=== PATIENT | male | born 1940 | race Caucasian/White ===

== ENCOUNTER → 2016-07-27 12:18 | Outpatient (CLI) | payer MEDICARE, OTHER ==
[2014-07-09 09:27] VITALS: BMI 32.9
[~2016-07-27 12:18] MED LIST: ALEVE220 MG PO; ASCORBIC ACID500 MG; BAYER CHEWABLE81 MG PO; BETAPACE 80 MG80 MG PO; CARDURA2 MG PO; COUMADIN1 MG; FISH OIL 1,0001 CA1; HYZAAR 100-25 T1 TAB PO; K-TAB10 MEQ PO; LASIX20 MG PO; MULTIPLE VITAMI1 TA1 PO; OSTEOBI-FLEX; SINEMET 10/101 UDTAB PO
--- NOTE | 2016-08-04 14:37 | EC ---
PATIENT:MICHELLE FREIRE DATE OF SERVICE: 07/27/16 SEX: M MEDICAL RECORD: [id number] DATE OF : 38 [facility] [place] AGE OF PATIENT: 76 ADMISSION DATE: 07/27/16 REFERRING PHYSICIAN: INTERPRETING PHYSICIAN: LEONEL BRADSHAW MD ECHOCARDIOGRAM REPORT ECHO CHARGES 4 ECHO COMPLETE CLINICAL DIAGNOSIS: TIA HX OF CAD/STENT/PACER/HTN ECHOCARDIOGRAPHIC MEASUREMENTS (adult normal given) AC root (d.<3.7cm) 3.7 LV Septum d (<1.2 cm> 2.2 Valve Excursion 1.3 LV Septum (systole) 2.5 Left Atria (s.<4.0cm> 4.0 LVPW d(<1.2cm) 1.6 RV (d.<2.3cm) 4.3 LVPW (sytole) 1.8 LV diastole(<5.6CM) 3.7 MV E-F(>70mm/sec) LV systole 2.9 LVOT Diameter 1.8 MV exc.(>10mm) Est.ejection fraction (50-75%) Pericardial Effusion N DOPPLER: LVIT A 40.0 E 104 LA RVSP LVOT 90 AOP1/2T Asc. Ao 115 RVOT 95 RA PA 120 AV Gradient Peak 5.33 AV Mean 2.20 AV Area 2.0 MV Gradient Peak 6.81 MV Mean 2.12 MV Area COMMENTS: Box Finisher: Malena FLETCHER Laundry Aid:Malena Michel TAPE# PACS DATE OF SERVICE: 07/27/2016 Echocardiogram FINDINGS: 1. Left ventricular chamber size is within normal limits. Left ventricular systolic function is normal. Overall ejection fraction estimated at 55%. 2. Left atrium, right atrium, and right ventricular chamber sizes are upper limits of normal, left atrium measures 4.0 cm. 3. Valvular structures have normal structure and motion. ECHOCARDIOGRAM REPORT [id number] MICHELLE FREIRE 4. Doppler interrogation only reveals trace mitral regurgitation that is not hemodynamically significant. No other valvular insufficiency or stenosis. 5. No evidence of pericardial effusion or left ventricular thrombus. TRANSINT:[id number] Voice Confirmation ID: [id number] DOCUMENT ID: [id number] LEONEL BRADSHAW MD at 7445 CC: [id number] DICTATION DATE: 07/27/16 1547 SPOOL TENDER: 07/28/16 0842 DEP CLI 07/27/16 [address] [place] [address]
== END | disposition home or self-care (01) ==
LOC: D.ECHO 12:18 → D.CT 15:00
DX: G45.0 Vertebro-basilar artery syndrome (principal); M47.9 Spondylosis, unspecified

== ENCOUNTER → 2016-08-25 10:05 | Outpatient (CLI) | payer MEDICARE, OTHER ==
[2014-07-09 09:27] VITALS: BMI 32.9
== END | disposition home or self-care (01) ==
LOC: D.CT 10:05
DX: G45.0 Vertebro-basilar artery syndrome (principal); I67.2 Cerebral atherosclerosis

== ENCOUNTER 2017-02-08 17:15 | Inpatient (IN) | payer MEDICARE, OTHER ==
[2017-02-08 17:43] VITALS: BP 118/76
--- NOTE | 2017-02-08 17:46 | NUR ---
NEW ADMIT FROM DR. HARDIN OFFICE. ESCORTED FROM ADMISSIONS BY W/C. CECILIAINTED TO ROOM. CALL LIGHT IN REACH. WILL CONT. PLAN OF CARE.
[2017-02-08 17:54] VITALS: BP 118/76; BMI 21.4
[2017-02-08] MEDS ORDERED: LANTUS SOL100 UNIT/1 SC (18:20)
[2017-02-08] MEDS ORDERED: NAPROXEN250 MG PO (18:21)
[2017-02-08] MEDS ORDERED: COUMADIN2.5 MG PO (18:23)
[2017-02-08 19:00] VITALS: BP 117/84
[2017-02-08 19:17] LABS: INR 3.08 (0.85-1.17)
--- NOTE | 2017-02-08 22:01 | NUR ---
PAGE AND RETURN CALL TO DR CHENG TO DISCUSS PATIENT'S C/O LEFT SHOULDER PAIN. ORDERS RECIEVED. WILL ALSO CONSULT ORTHO FOR EVALUATION.
[2017-02-09] VITALS: BP 126/56
[2017-02-09 04:00] VITALS: BP 140/83
[2017-02-09 05:06] LABS: BASOPHILS 0.1 % (0-2); EOSINOPHILS 0 % (0-7); HEMATOCRIT 34.7 % (42.0-54.0); HEMOGLOBIN 11.6 g/dL (13.5-17.5); IMMATURE GRANULOCYTES 0.5 % (0-5); LYMPHOCYTES 4.7 % (15-50); MCH 32.2 pg (26.0-34.0); MCHC 33.4 g/dL (31.0-37.0); MCV 96.4 fL (80.0-100.0); MEAN PLATELET VOLUME 10.4 fL (7.4-10.4); MONOCYTES 8.1 % (2-11); NEUTROPHILS 86.6 % (40-80); PLATELET COUNT 139 10x3/uL (130-400); WBC 15.2 10x3/uL (4.8-10.8)
[2017-02-09 05:27] LABS: INR 2.91 (0.85-1.17); PROTIME 30.7 SECONDS (11.6-15.0)
[2017-02-09 05:33] LABS: ALBUMIN 2.8 g/dL (3.4-5.0); ALKALINE PHOSPHATASE 105 U/L (46-116); ALT (SGPT) 31 U/L (10-68); CALC OSMOLALITY 275 mosm/kg (275-300); CALCIUM 9.6 mg/dL (8.5-10.1); CARBON DIOXIDE 30.7 mmol/L (21.0-32.0); CHLORIDE - SERUM 96 mmol/L (98-107); POTASSIUM - SERUM 3.9 mmol/L (3.5-5.1); PROTEIN - SERUM 6.6 g/dL (6.4-8.2); SODIUM 131 mmol/L (136-145); UREA NITROGEN 23 mg/dL (7-18); eGFR NON AFRICAN AMERICAN 77 mL/min (90-120)
[2017-02-09 05:34] LABS: GLUCOSE 257 mg/dL (74-106)
--- NOTE | 2017-02-09 07:19 | NUR ---
PT SITTING UP IN BED DR CUMMINGS AND NURSE AT BEDSIDE TALKING WITH PT. WILL CONT TO MONITOR
[2017-02-09 08:00] VITALS: BP 133/76
--- NOTE | 2017-02-09 09:04 | NUR ---
DR CUMMINGS ORDERED CT SCAN WITH ARTHROGRAM. CT SAID THAT PT PT AND INR ARE TOO ELEVATED AND DR NEWELL SAID TO HOLD ALL BLOOD THINNERS INCLUDING ASA AND COUMADIN UNTIL AFTER PTS SCAN PLANNED FOR WEDNESDAY. PLACED MEDICATIONS ON HOLD ORDERED. PT TO BE NPO AFTER MIDNIGHT FOR SCAN PLANNED ON SUNDAY 02/11, ORDER IS ALREADY IN COMPUTER. PT UPDATED ON THIS INFORMATION
[2017-02-09 10:25] VITALS: BMI 33.5
[2017-02-09 12:03] VITALS: BP 115/49
--- NOTE | 2017-02-09 12:20 | NUR ---
PT ACCIDENTALLY PULLED HIS PIV OUT CATH TIP INTACT. PT IS EATING LUNCH RIGHT NOW WILL CALL WHEN READY FOR ME TO RESITE HIS PIV
--- NOTE | 2017-02-09 13:00 | NUR ---
SITED PT TO LEFT FA 20G X1 STICK
[2017-02-09 15:54] VITALS: BP 125/69
--- NOTE | 2017-02-09 16:15 | NUR ---
PT SITTING UP IN BED WATCHING TV DENIES NEEDS OTHER THAN PAIN PILL GIVEN
[2017-02-09 19:00] VITALS: BP 127/78
--- NOTE | 2017-02-09 19:15 | NUR ---
ROUNDING NOTE: PT IS AWAKE, A&O X3 SITTING UP IN BED. PT HAS LEFT FOREARM SALINE LOC. HE IS WEARING HIS OWN [place] AND REFUSES TO WEAR OUR SCDS FOR DVT PROPHYLAXIS. PT REPORTS CONTINUED LEFT SHOULDER PAIN, BUT STATES THAT HIS PAIN HAS IMPROVED NICELY WITH PO PERCOCET PER MD ORDER. PT'S COUMADIN AND ASA ARE BEING HELD IN PREP FOR CT ARTHROGRAM ON WEDNESDAY TO FURTHER EVALUATE HIS LEFT SHOULDER PAIN. PT IS UP AD CLAUDINE TO BR. REPORTS VOIDING AND BM X1. DENIES ANY OTHER NEEDS, OTHER THAN KEEPING DOOR SHUT. WILL CONT TO MONITOR.
--- NOTE | 2017-02-09 21:00 | NUR ---
DURING 2099 MED PASS, PT REFUSED NAPROXEN DUE TO CONCERN OVER IMPACT A BLOOD THINNER. PT'S COUMADIN AND ASA ARE BEING HELD IN PREPARATION FOR A CT ARTHROGRAM TO BE DONE ON WEDNESDAY LONG INR COMES DOWN. I EXPLAINED THAT IT WAS THE PT'S CHOICE TO REFUSE THE MED AND I UNDERSTOOD HIS CONCERN. I ADVISED HIM TO DISCUSS HIS CONCERN WITH HIS MD. HE STATES THAT HIS SHOULDER PAIN IS NOT TOO BAD AT THE MOMENT. THE PRN PERCOCETS ARE WORKING VERY WELL, SOHE DOESN'T REALLY NEED THE NAPROXEN. WILL CONT TO MONITOR.
[2017-02-10 04:00] VITALS: BP 113/63
[2017-02-10 05:15] LABS: BASOPHILS 0 % (0-2); EOSINOPHILS 0 % (0-7); HEMATOCRIT 34.4 % (42.0-54.0); HEMOGLOBIN 11.9 g/dL (13.5-17.5); IMMATURE GRANULOCYTES 0.5 % (0-5); LYMPHOCYTES 4.9 % (15-50); MCH 32.8 pg (26.0-34.0); MCHC 34.6 g/dL (31.0-37.0); MCV 94.8 fL (80.0-100.0); MEAN PLATELET VOLUME 10.2 fL (7.4-10.4); MONOCYTES 7.9 % (2-11); NEUTROPHILS 86.7 % (40-80); RBC 3.63 10x6/uL (4.20-6.10); RDW 12.7 % (11.5-14.5); WBC 15.2 10x3/uL (4.8-10.8)
[2017-02-10 05:26] LABS: PLATELET COUNT 167 10x3/uL (130-400)
[2017-02-10 05:31] LABS: INR 3.04 (0.85-1.17); PROTIME 31.7 SECONDS (11.6-15.0)
[2017-02-10 05:36] LABS: ALBUMIN 2.6 g/dL (3.4-5.0); ALKALINE PHOSPHATASE 102 U/L (46-116); ALT (SGPT) 28 U/L (10-68); BILIRUBIN - TOTAL 0.51 mg/dL (0.2-1.3); CALC OSMOLALITY 264 mosm/kg (275-300); CALCIUM 9.5 mg/dL (8.5-10.1); CARBON DIOXIDE 29.6 mmol/L (21.0-32.0); CHLORIDE - SERUM 92 mmol/L (98-107); CREATININE - SERUM 0.9 mg/dL (0.6-1.3); GLUCOSE 212 mg/dL (74-106); POTASSIUM - SERUM 3.7 mmol/L (3.5-5.1); PROTEIN - SERUM 6.7 g/dL (6.4-8.2); SODIUM 126 mmol/L (136-145); UREA NITROGEN 29 mg/dL (7-18); eGFR NON AFRICAN AMERICAN 87 mL/min (90-120)
--- NOTE | 2017-02-10 07:16 | NUR ---
pt sitting up in bed watching tv denies needs will cont to monitor
[2017-02-10 08:16] VITALS: BP 116/24; BP 136/80
[2017-02-10 11:45] VITALS: BP 148/77
--- NOTE | 2017-02-10 12:20 | NUR ---
DR CUMMINGS CANCELLED PT CT SCAN AND ARTHROGRAM. RESTARTED BLOOD THINNERS SINCE THEY WERE ON HOLD FOR THIS SCAN.
--- NOTE | 2017-02-10 14:45 | NUR ---
PT SITTING UP IN BED CLAIMS HIS CAME UP AND SHAVED HIM. DENIES NEEDS WILL CONT TO MONITOR
--- NOTE | 2017-02-10 14:48 | NUR ---
PT HAS EXCORIATED PERINEAL AREA. CALLED DR MARTIN OFFICE TO ASK FOR AN ORDER FOR CALMOSEPTINE. SPOKE WITH NURSE, SHE WILL CALL ME BACK
[2017-02-10 16:00] VITALS: BP 132/57
--- NOTE | 2017-02-10 19:34 | NUR ---
PT LYING IN BED, TALKING ON HIS CELL PHONE, AWAKE, ALERT, ORIENTED. PT DENIES ANY ACUTE NEEDS AT THIS TIME. WILL GIVE PT AN HS SNACK WITH HIS INSULIN. CONTINUE TO MONITOR PT CLOSELY. BED LOW, CALL LIGHT IN REACH, SIDE RAILS X 2, HOB 30 DEGREES.
[2017-02-10 20:00] VITALS: BP 133/68
--- NOTE | 2017-02-10 20:23 | NUR ---
PT STATES THAT HE HAS HAD A BM EARLIER THAT WAS MORE FORMED FROM THE ONES BEFORE. PT STATES HE THINKS THE ANTIBIOTICS ARE CAUSING HIM TO HAVE DIARRHEA AND WOULD LIKE TO START TAKING A PROBIOTIC. PT EATING CHOCOLATE ICE CREAM FOR HIS HS SNACK. DENIES ANY OTHER NEEDS. CONTINUE TO MONITOR CLOSELY.
--- NOTE | 2017-02-10 22:31 | NUR ---
PT SALINE LOCKED PER REQUEST AFTER ADMINISTRATION OF HIS LEVAQUIN. PT REMAINS AWAKE, ALERT, ORIENTED, DENIES ANY OTHER NEEDS. PT IS EATING AND DRINKING WNL AND LIKES TO BE SL FOR EASIER AMBULATION TO BATHROOM. PT DENIES ANY OTHER NEEDS. CONTINUE TO MONITOR CLOSELY.
[2017-02-11 05:51] LABS: BASOPHILS 0 % (0-2); EOSINOPHILS 0 % (0-7); HEMATOCRIT 33.9 % (42.0-54.0); HEMOGLOBIN 11.6 g/dL (13.5-17.5); IMMATURE GRANULOCYTES 0.4 % (0-5); LYMPHOCYTES 6.9 % (15-50); MCH 32.1 pg (26.0-34.0); MCHC 34.2 g/dL (31.0-37.0); MCV 93.9 fL (80.0-100.0); MONOCYTES 6.9 % (2-11); NEUTROPHILS 85.8 % (40-80); PLATELET COUNT 178 10x3/uL (130-400); RBC 3.61 10x6/uL (4.20-6.10); RDW 12.5 % (11.5-14.5); WBC 13.7 10x3/uL (4.8-10.8)
[2017-02-11 06:10] LABS: INR 3.07 (0.85-1.17)
[2017-02-11 06:17] LABS: ALBUMIN 2.5 g/dL (3.4-5.0); ALKALINE PHOSPHATASE 84 U/L (46-116); ALT (SGPT) 31 U/L (10-68); CALC OSMOLALITY 278 mosm/kg (275-300); CALCIUM 9.2 mg/dL (8.5-10.1); CARBON DIOXIDE 29.5 mmol/L (21.0-32.0); CHLORIDE - SERUM 98 mmol/L (98-107); CREATININE - SERUM 0.8 mg/dL (0.6-1.3); GLUCOSE 203 mg/dL (74-106); POTASSIUM - SERUM 3.9 mmol/L (3.5-5.1); PROTEIN - SERUM 5.4 g/dL (6.4-8.2); SODIUM 134 mmol/L (136-145); UREA NITROGEN 27 mg/dL (7-18); eGFR NON AFRICAN AMERICAN > 90 mL/min (90-120)
--- NOTE | 2017-02-11 07:38 | NUR ---
PT SITTING UP IN BED WATCHING TV DENIES NEEDS WILL CONT TO MONITOR
[2017-02-11 08:00] VITALS: BP 122/68
[2017-02-11] MEDS ORDERED: MEDROL DOSE PACK4 MG PO (08:18)
[2017-02-11] MEDS ORDERED: ADVAIR 250/501 DISK INH (08:18)
[2017-02-11] MEDS ORDERED: COMBIVENT RESPIM4 GM INH (08:19)
[2017-02-11] MEDS ORDERED: DOXYCYCLINE HY100 M2 PO (08:20)
[2017-02-11] MEDS ORDERED: PERCOCET 5-3251 TAB PO (08:27)
--- NOTE | 2017-02-11 11:00 | NUR ---
Patient Name: MICHELLE FREIRE Admission Status: Urgent Accout number: [id number] Admission Date: 02-08-2017 : 1940 Admission Diagnosis:SHORTNESS OF BREATH Attending: SHIREEN PRINGLE Current LOS: 3 Anticipated DC Date: 02-11-2017 Planned Disposition: Outpatient clinics\services (Programs) Primary Insurance: MEDICARE A & B PLANNED EXTERNAL PROVIDER: OUTPATIENT THERAPY SERVICES AT [facility] Discharge Planning Comments: * Is the patient Alert and Oriented? Yes 0 * How many steps to enter\exit or inside your home? 2 0 * PCP DR. PRINGLE 0 * Pharmacy [facility] 0 * Preadmission Environment Home with Family 0 * ADLs Independent 0 * Equipment None 0 * Other Equipment NO MEDICAL EQUIPMENT PROVIDER PREFERNCE PLANS TO USE [employer] FOR ANY MINOR EQUIPMENT NEEDS 0 * List name and contact numbers for known caregivers / representatives who currently or will assist patient after discharge: JAZZY FREIRE, SPOUSE, 0 * Community resources currently utilized None 0 * Please name any agencies selected above. NONE 0 * Additional services required to return to the preadmission environment? No 0 * Can the patient safely return to the preadmission environment? Yes 0 * Has this patient been hospitalized within the prior 30 days at any hospital? No 0 CM RECEIVED DISCHARGE ORDER, MET WITH PT IN ROOM TO DISCUSS DISCHARGE PLANNING AND NEEDS. PT REPORTS LIVING AT HOME INDEPENDENTLY WITH SPOUSE. PT HAS NO MEDICAL EQUIPMENT AND NO OUTSIDE SERVICES ASSISTING IN THE HOME. CM DISCUSSED AVAILABILITY OF HOME HEALTH, REHAB SERVICES AND MEDICAL EQUIPMENT. PT STATES THE DOCTOR TALKED ABOUT POSSIBLE PHYSICAL THERAPY AND PT WOULD LIKE OUTPATIENT THERAPY AT THE [facility]. CM CALLED AND SPOKE TO NAI CAMARA AT [facility], RECEIVED ORDER FOR OUTPATIENT THERAPY FOR PT'S SHOULDER AND THERAPY DEPARTMENT AT THE CLINIC WILL CONTACT PT TO ARRANGE APPOINTMENT. PT NOTIFIED, IN AGREEMENT WITH DISCHARGE PLAN, REPORTS HIS WILL PICK HIM UP FOR DISCHARGE HOME. IMPORTANT MESSAGE FROM MEDICARE PROVIDED AND EXPLAINED. [facility] TECHNICIAN NURSE NOTIFIED. Rehab Nurse: Angel Lacy
--- NOTE | 2017-02-11 11:30 | NUR ---
WENT OVER DC PAPERWORK WITH PT PT VERBALIZES UNDERSTANDING. DC PIV WITH CATH TIP INTACT. DC TELE AND RETURNED TO JAZZ MUSICIAN. PT WAITING ON HIS TO GET HERE TO PICK HIM UP. PT WAS GIVEN SCRIPT FOR PERCOCET.
--- NOTE | 2017-02-11 12:01 | NUR ---
PT WAS WHEELED DOWNSTAIRS BY VOLUNTEER.
--- NOTE | 2017-02-22 11:43 | CN ---
PATIENT NAME:MICHELLE VICKERS MEDICAL RECORD: [id number] : 38 LOCATION:D. D.2130 ADMIT DATE: 02/08/17 ACCOUNT: [id number] CONSULTING PHYSICIAN: HILARIO HITCHCOCK MD REFERRING PHYSICIAN: SHIREEN PRINGLE MD DATE OF CONSULTATION: 02/09/2017 Pulmonary Consultation CONSULT REQUESTING PHYSICIAN: Dr. Cheng. REASON FOR CONSULTATION: Cough, shortness of breath. HISTORY OF PRESENT ILLNESS: Mr. Vickers is a 76-year-old very pleasant gentleman who for the last 2-3 days is sick. He has a fever of 102. He was coughing, he was wheezing. He has shortness of breath. The patient having a fall and he has hurt his left shoulder. Since his admission, his shortness of breath is a bit better with nebulizer medication. REVIEW OF SYSTEMS: Mainly in the history of present illness. PAST MEDICAL HISTORY: 1. COPD. 2. Emphysema. 3. Obstructive sleep apnea. 4. Coronary artery disease. 5. History of sick sinus syndrome. 6. Obstructive sleep apnea. The patient is not using any CPAP machine. 7. Diabetes mellitus. 8. History of DVT. 9. Chronic anticoagulation on Coumadin. PAST SURGICAL HISTORY: 1. He has status post pacemaker placement. 2. He has shoulder surgery. ALLERGIES: There are no known drug allergy. PERSONAL AND SOCIAL HISTORY: The patient has smoking history of more than 50-pack year. He quit 5 years ago. Nondrinker. FAMILY HISTORY: Noncontributory. PHYSICAL EXAMINATION: GENERAL: Now, the patient is lying comfortably. He is not in acute distress. VITAL SIGNS: Blood pressure 125/69, pulse is 83, respiration is 20, temperature 98.2, SPO2 is 93% on room air. HEENT: Conjunctivae pink, sclerae nonicteric. NECK: Supple, no JVD. CHEST: Chest excursion is minimal on both sides. There is no wheezing or crackle at the bases heard. HEART: Rhythm regular, normal sound, no murmur. ABDOMEN: Soft, bowel sounds present. No hepatosplenomegaly. RECTAL: Deferred. EXTREMITIES: No cyanosis, no clubbing, no pedal edema. CONSULT REPORT [id number] MICHELLE VICKERS SKIN: Warm, normal turgor. CENTRAL NERVOUS SYSTEM: The patient is awake and alert. There are no obvious cranial nerve abnormalities. The gait was not tested. LABORATORY DATA: CBC: WBC 15.2, hemoglobin 11.6, hematocrit 34.7 and the platelet count 139. Chemistry: Sodium is 131, potassium is 3.9, BUN is 23, creatinine is 1, glucose 257. INR is 2.91. The chest radiograph is not available for review. IMPRESSION: 1. Acute exacerbation of chronic obstructive pulmonary disease and possible pneumonia by the chest x-ray at Dr. Cheng's office consistent with a community-acquired pneumonia. 2. Leukocytosis secondary to pneumonia. 3. Febrile illness secondary to pneumonia. 4. Obstructive sleep apnea, not using the CPAP machine. 5. History of deep venous thrombosis, on chronic anticoagulation. RECOMMENDATION: Continue methylprednisolone IV, Levaquin IV, albuterol/ipratropium nebulizer. Start on Brovana, budesonide nebulizer. Follow up labs and chest radiograph in the morning. Dr. Cheng, thank you for involving me in the care of Mr. Vickers. TRANSINT:[id number] Voice Confirmation ID: [id number] DOCUMENT ID: [id number] HILARIO HITCHCOCK MD at 1143 CC: GIOVANY CHENG MD [id number] DICTATION DATE: 02/09/17 164 FINE GRADE BULLDOZER OPERATOR: 02/09/17 2317 DIS IN 02/11/17 [address] [place] [address]
== END 2017-02-11 12:02 | disposition home or self-care (01) | DRG 190 ==
LOC: D.M2 17:15
PROVIDERS: Family Medicine; ADMIT Family Medicine
DX: J44.0 Chronic obstructive pulmonary disease with (acute) lower respiratory infection (principal); J18.9 Pneumonia, unspecified organism; J44.1 Chronic obstructive pulmonary disease with (acute) exacerbation; I48.91 Unspecified atrial fibrillation; Z79.01 Long term (current) use of anticoagulants; G47.33 Obstructive sleep apnea (adult) (pediatric); E11.9 Type 2 diabetes mellitus without complications; Z95.0 Presence of cardiac pacemaker; Z86.73 Personal history of transient ischemic attack (TIA), and cerebral infarction without residual deficits; Z87.891 Personal history of nicotine dependence; M25.512 Pain in left shoulder

== ENCOUNTER 2017-02-28 14:12 | Inpatient (IN) | payer MEDICARE, OTHER ==
--- NOTE | ~2017-02-28 | HEMODYNAMI ---
PATIENT:MICHELLE FREIRE MEDICAL RECORD: [id number] : 38 LOCATION:D.MS [facility]17 ADMISSION DATE: 02/28/17 Generatedon:03/09/201710:58 Patient name: MICHELLE FREIRE Patient #: [id number] SSN: : 1940 Date of study: 03/09/2017 Page: Of Hemodynamic Procedure Report Patient Data Patient Demographics Procedure consent was obtained First Name: MICHELLE Gender: Male Last Name: MOUNA : 1940 Middle Initial: VEDA Age: 76 year(s) Patient #: [id number] Race: Unknown Additional ID: [id number] Contact details [address]: [address] [place] [address] State: [place] City: [place] Zip code: [address] Admission Admission Data Admission Date: 02/28/2017 Admission Time: 17:56 Room #: D.2217 Procedure Procedure Types Cath Procedure Diagnostic Procedure URVASHI Procedure Description Procedure Date Procedure Date: 03/09/2017 Procedure Start Time: 10:44 Procedure End Time: 10:57 Procedure Staff Name Function Ian White MD Performing Physician Kenrick Myers RN Nurse Rudy Castillo RT Monitor Procedure Data Cath Procedure Fluoroscopy Diagnostic fluoroscopy Total fluoroscopy Time: 0 time: 0 min min Diagnostic fluoroscopy Total fluoroscopy dose: 0 dose: 0 mGy mGy Contrast Material Contrast Material Type Amount (ml) Isovue 300 0 Estimated blood loss: 0 ml Procedure Complications No complications Procedure Medications Medication Administration Route Dosage Oxygen NC 2 l/min Hurricaine La Rue P.O. 1 Sprays Refer to Anesthesia Notes for Sedation Medications Hemodynamics Rest Pre Cath Intra NCS Post Cath Vital Signs Time Heart Resp SPO2 etCO2 NIBP (mmHg) Rhythm Pain Sedation Rate (ipm) (%) (mmHg) Status Level (bpm) 10:37:47 61 13 95 36.3 152/89(134) NSR 0 (11) 10(A) , No pain 10:42:13 78 15 96 37 165/92(136) NSR 0 (11) 10(A) , No pain 10:46:34 68 26 97 0 140/78(109) NSR 0 (11) 9(A) , No pain 10:51:39 75 18 98 9.8 128/80(108) NSR 0 (11) 9(A) , No pain 10:54:59 75 23 97 9.8 126/73(92) NSR 0 (11) 10(A) , No pain Medications Time Medication Route Dose Verified Delivered Reason Notes Effective ness by by 10:39:06 Oxygen NC 2 Ian Choudhary used for l/min Cindy Myers cattle inspector 10:40:06 Hurricaine P.O. 1 Ian Choudhary Per La Rue Sprays Cindy Myers RN physician 10:40:11 Refer to Ian Choudhary Anesthesia Cindy Myers RN Notes for Sedation Medications Procedure Log Time Note 10:16:04 Rudy Castillo RT(R) sent for patient. Start room use. 10:16:05 Time tracking: Regular hours 10:16:09 Plan of Care:Hemodynamics will remain stable., Cardiac rhythm will remain stable., Comfort level will be maintained., Respiratory function will remain adequate., Patient/ family verbilizes understanding of procedure., Procedure tolerated without complication., Recovers from procedure without complications.. 10:32:16 Patient arrived from Med/Surg to CCL 3. Patient remains on bed/stretcher for procedure. 10:32:17 Warm blankets applied, and aquilino hugger turned on for patient comfort. 10:32:18 Correct patient and procedure confirmed by team. 10:32:19 Signed procedure consent form obtained from patient. 10:32:21 ECG and BP/O2 sat monitors applied to patient. 10:32:59 Dr Steve present and monitoring patient for TIVA. 10:33:09 Baljinder Luna Building Drafter present for URVASHI. 10:36:30 Vital chart was started 10:36:34 Rhythm: sinus rhythm 10:36:35 Full Disclosure recording started 10:36:50 H&P Date Dictated: 03/04/2017 Within 30 days and on chart.. 10:36:57 Pre-procedure instructions explained to patient. 10:36:58 Pre-op teaching completed and patient verbalized understanding. 10:37:00 Family unavailable. 10:37:02 Patient NPO since Midnight. 10:37:03 Is the patient allergic to Iodine/contrast media? No. 10:37:04 Is patient on blood thinner?Yes 10:37:07 ACC The patient was administered the following blood thiners within the last 24 hours: Coumadin 10:37:10 Patient diabetic? Yes. 10:37:12 If diabetic: On Metformin? No 10:37:16 Previous problem with sedation/anesthesia? No ? 10:37:18 Snore? Yes 10:37:19 Sleep apnea? No 10:37:20 Deviated septum? No 10:37:21 Opens mouth fully? Yes 10:37:21 Sticks out tongue? Yes 10:37:27 Airway obstruction? Yes possible COPD 10:37:33 Dentures? Yes OUT 10:37:46 IV patent on arrival in right forearm with 0.9% NaCl at [facility]. 10:37:48 Lab results completed and on chart. 10:38:16 Pt prepped for URVASHI. 10:38:48 --------ALL STOP TIME OUT------ 10:38:49 Final Timeout: patient, procedure, and site verified with staff and physician. All members of the team are in agreement. 10:38:54 Physical assessment completed. ASA score P 3 - A patient with severe systemic disease as per Ian White MD. 10:39:03 Sedation plan: TIVA Propofol 10:39:06 Oxygen 2 l/min NC was administered by Kenrick Myers RN; used for procedure; 10:40:06 Hurricaine [place] 1 Sprays P.O. was administered by Kenrick Myers RN; Per physician; 10:40:11 Refer to Anesthesia Notes for Sedation Medications was administered by Kenrick Myers RN; ; 10:44:48 Procedure started. 10:44:50 URVASHI started. 10:48:56 URVASHI completed. 10:49:10 Procedure ended.(Physican Out) 10:49:13 Fluoroscopy time 00.00 minutes. 10:49:14 Fluoroscopy dose: 0 mGy 10:49:14 Flurop Dose total: 0 10:49:16 Contrast amount:Isovue 300 0ml. 10:49:23 Post-procedure physical assessment completed. ASA score P 3 - A patient with severe systemic disease as per Ian White MD. 10:49:26 Post procedure rhythm: unchanged. 10:49:28 Estimated blood loss: 0 ml 10:49:30 Post procedure instruction explained to patient.Patient verbalizes understanding. 10:49:31 Patient needs reinforcement of post procedure teaching. 10:49:35 Procedure and supply charges have been captured, reviewed, submitted and are correct. 10:49:39 Procedure Complication : No complications 10:55:33 Vital chart was stopped 10:55:33 See physician's report for complete and final results. 10:57:18 Report given to Med/Surg. 10:57:28 Patient transfered to Med/Surg with Bed. 10:57:29 Procedure ended. 10:57:29 Full Disclosure recording stopped 10:57:32 End room use (Document Last) Signature Audit [place] Stage Time Signature Unsigned Intra-Procedure 03/09/2017 Rudy Castillo 10:58:14 AM RT(R) Signatures Monitor : Rudy Castillo RT Signature : Date : Time : [id number] [facility] [place] [address]
[~2017-02-28 14:12] MED LIST changes: +ADVAIR 250/501 DISK INH; +COMBIVENT RESPIM4 GM INH; +COUMADIN2.5 MG PO; +DOXYCYCLINE HY100 M2 PO; +LANTUS SOL100 UNIT/1 SC; +MEDROL DOSE PACK4 MG PO; +NAPROXEN250 MG PO; +PERCOCET 5-3251 TAB PO
[2017-02-28 15:28] LABS: BASOPHILS 0.2 % (0-2); EOSINOPHILS 0.6 % (0-7); HEMATOCRIT 34.1 % (42.0-54.0); HEMOGLOBIN 11.4 g/dL (13.5-17.5); IMMATURE GRANULOCYTES 0.2 % (0-5); LYMPHOCYTES 7.4 % (15-50); MCH 31.8 pg (26.0-34.0); MCHC 33.4 g/dL (31.0-37.0); MCV 95.3 fL (80.0-100.0); MEAN PLATELET VOLUME 9.3 fL (7.4-10.4); NEUTROPHILS 79.6 % (40-80); PLATELET COUNT 137 10x3/uL (130-400); RBC 3.58 10x6/uL (4.20-6.10); RDW 12.8 % (11.5-14.5); WBC 8.9 10x3/uL (4.8-10.8)
[2017-02-28 15:59] LABS: ALBUMIN 2.8 g/dL (3.4-5.0); ALKALINE PHOSPHATASE 125 U/L (46-116); ALT (SGPT) 20 U/L (10-68); BILIRUBIN - TOTAL 0.96 mg/dL (0.2-1.3); CALCIUM 9.3 mg/dL (8.5-10.1); CARBON DIOXIDE 29.9 mmol/L (21.0-32.0); CHLORIDE - SERUM 98 mmol/L (98-107); CREATININE - SERUM 0.9 mg/dL (0.6-1.3); POTASSIUM - SERUM 3.6 mmol/L (3.5-5.1); PROTEIN - SERUM 6.9 g/dL (6.4-8.2); SODIUM 135 mmol/L (136-145); UREA NITROGEN 15 mg/dL (7-18); eGFR NON AFRICAN AMERICAN 87 mL/min (90-120)
[2017-02-28 16:03] LABS: CALC OSMOLALITY 273 mosm/kg (275-300); CKMB 0.1 U/L (0.0-3.6); CREATINE KINASE 47 UL (21-232); GLUCOSE 151 mg/dL (74-106); PRO BNP 258 pg/mL (0-450); TROPONIN-I < 0.017 ng/mL (0.000-0.060)
[2017-02-28] MEDS ORDERED: GLUCOPHAGE500 MG PO (18:53)
[2017-02-28] MEDS ORDERED: VENTOLIN HFA18 GM INH (18:54)
[2017-02-28] MEDS ORDERED: BREO ELLIPTA 11 EACH INH (18:54)
--- NOTE | 2017-02-28 19:01 | NUR ---
RECEIVED TO ROOM 2217 FROM ER VIA .
[2017-02-28 20:15] VITALS: BP 105/58; BMI 31.9
[2017-03-01] VITALS: BP 139/75
[2017-03-01 04:00] VITALS: BP 130/63
[2017-03-01 06:05] LABS: BASOPHILS 0.1 % (0-2); EOSINOPHILS 0.5 % (0-7); HEMATOCRIT 32.4 % (42.0-54.0); HEMOGLOBIN 10.4 g/dL (13.5-17.5); IMMATURE GRANULOCYTES 0.1 % (0-5); LYMPHOCYTES 9.4 % (15-50); MCHC 32.1 g/dL (31.0-37.0); MCV 96.7 fL (80.0-100.0); MEAN PLATELET VOLUME 9.6 fL (7.4-10.4); MONOCYTES 13.9 % (2-11); PLATELET COUNT 134 10x3/uL (130-400); RBC 3.35 10x6/uL (4.20-6.10); WBC 8.7 10x3/uL (4.8-10.8)
[2017-03-01 06:18] LABS: INR 2.71 (0.85-1.17); PROTIME 28.9 SECONDS (11.6-15.0)
[2017-03-01 06:24] LABS: CALC OSMOLALITY 270 mosm/kg (275-300); CALCIUM 9.5 mg/dL (8.5-10.1); CARBON DIOXIDE 29.1 mmol/L (21.0-32.0); CHLORIDE - SERUM 99 mmol/L (98-107); CREATININE - SERUM 0.9 mg/dL (0.6-1.3); GLUCOSE 152 mg/dL (74-106); POTASSIUM - SERUM 3.6 mmol/L (3.5-5.1); SODIUM 134 mmol/L (136-145); UREA NITROGEN 13 mg/dL (7-18); eGFR NON AFRICAN AMERICAN 87 mL/min (90-120)
[2017-03-01 08:31] VITALS: BP 127/69
[2017-03-01 12:04] VITALS: BP 126/63
--- NOTE | 2017-03-01 15:29 | NUR ---
REMAINS NPO FOR CTA. RESPIRATIONS EVEN AND NON LABORED WITH OXYGEN AT 2L VIA NC. CALL LIGHT IN REACH, WILL CONTINUE WITH PLAN OF CARE.
[2017-03-01 16:18] VITALS: BP 150/73
[2017-03-01 20:00] VITALS: BP 99/52
--- NOTE | 2017-03-01 20:00 | NUR ---
ASSESSMENT PER FLOWSHEET. IV PATENT RT HAND SALINE LOCK AFTER ANTIBIOTICS. ASSISTED UP TO CHAIR AT BEDSIDE. CALL LIGHT WITHIN REACH VOIDED IN URINAL.O2 ON 2L/M PER NC.
--- NOTE | 2017-03-01 21:00 | NUR ---
MEDS GIVEN PER FLOWSHEET. WARM PACK APPLIED TO PT'S BACK.
--- NOTE | 2017-03-01 22:00 | NUR ---
ASSISTED BACK TO BED SR UP X2 CALL LIGHT WITHIN REACH [place] FROM HOME ON. TELM. SHOWS SR WITH 1ST DEGREE AVB HR 95. ANTIBIOTIC HANGING TO IV SITE.
--- NOTE | 2017-03-01 23:30 | NUR ---
EYES CLOSED RESPIRATIONS WITH EASE AND UNLABORED.
[2017-03-02] VITALS (7 sets, daily range): BP systolic 110–169; BP diastolic 52–93
--- NOTE | 2017-03-02 00:28 | NUR ---
C/O BACK PAIN RATES PAIN LEVEL #6. TYLENOL 650MG PO GIVEN FOR PAIN CONTROL.
--- NOTE | 2017-03-02 03:55 | NUR ---
CONTINUE TO WAIT ON RATOPRINTER TO PULL SOLUMEDROL DOSE.
--- NOTE | 2017-03-02 04:50 | NUR ---
PROFESSOR OF MUSIC Samanta WORTHINGTON RN HERE TO PILL MEDICATION. SOLUMEDROL 40MG IVP GIVEN ORDERED.PT SITTING UPRIGHT IN CHAIR AT BEDSIDE. IV SALINE LOCKED.
[2017-03-02 06:00] LABS: BASOPHILS 0.1 % (0-2); EOSINOPHILS 1.6 % (0-7); HEMOGLOBIN 11.2 g/dL (13.5-17.5); IMMATURE GRANULOCYTES 0.2 % (0-5); LYMPHOCYTES 16.7 % (15-50); MCH 31.5 pg (26.0-34.0); MCHC 32.9 g/dL (31.0-37.0); MCV 95.8 fL (80.0-100.0); MEAN PLATELET VOLUME 9.9 fL (7.4-10.4); MONOCYTES 19.7 % (2-11); NEUTROPHILS 61.7 % (40-80); PLATELET COUNT 143 10x3/uL (130-400); RBC 3.55 10x6/uL (4.20-6.10); RDW 13.1 % (11.5-14.5); WBC 8.6 10x3/uL (4.8-10.8)
[2017-03-02 06:17] LABS: CALC OSMOLALITY 265 mosm/kg (275-300); CALCIUM 9.6 mg/dL (8.5-10.1); CARBON DIOXIDE 29.8 mmol/L (21.0-32.0); CHLORIDE - SERUM 95 mmol/L (98-107); CREATININE - SERUM 0.7 mg/dL (0.6-1.3); GLUCOSE 165 mg/dL (74-106); POTASSIUM - SERUM 3.3 mmol/L (3.5-5.1); SODIUM 131 mmol/L (136-145); eGFR NON AFRICAN AMERICAN > 90 mL/min (90-120)
[2017-03-02 06:18] LABS: UREA NITROGEN 9 mg/dL (7-18)
[2017-03-02 06:20] LABS: PROTIME 24.2 SECONDS (11.6-15.0)
[2017-03-02 06:21] LABS: INR 2.16 (0.85-1.17)
--- NOTE | 2017-03-02 06:27 | NUR ---
MEDES GIVEN PER MAR. NO CHANGES IN ASSESSMENT.
--- NOTE | 2017-03-02 07:30 | NUR ---
RECIEVED PT DURING WALKING ROUNDS. PT RESTING IN BED WITH COMPLAINTS OF PAIN OF A 2 ON A SCALE OF 1-10. NO MEDICATION TO BE GIVEN. ASSESSMENT DONE PER FLOWSHEET. BED IN LOW POSITION AND CALL LIGHT WITHIN REACH. WILL CONTINUE TO MONITOR.
--- NOTE | 2017-03-02 11:00 | NUR ---
PT IV LEAKING, IV RESITED TO LEFT HAD. 22G SECURED WITH OP-SITE AND TAPE FLUSHED WITH 10CC OF NS. BED IN LOW POSITION AND CALL LIGHT WITHIN REACH. WILL CONTINUE TO MONITOR.
--- NOTE | 2017-03-02 13:59 | NUR ---
* Is the patient Alert and Oriented? Yes 0 * How many steps to enter\exit or inside your home? 0 0 * PCP [facility] 0 * Pharmacy [facility] [place] 0 * Preadmission Environment Home with Family 0 * ADLs Independent 0 * Equipment CPAP 0 * List name and contact numbers for known caregivers / representatives who currently or will assist patient after discharge: JAZZY FREIRE () [phone] 0 * Community resources currently utilized None 0 * Additional services required to return to the preadmission environment? Yes 0 * Can the patient safely return to the preadmission environment? Yes 0 * Has this patient been hospitalized within the prior 30 days at any hospital? Yes 0 Grand Total: 0
--- NOTE | 2017-03-02 13:59 | NUR ---
Patient Name: MICHELLE VICKERS Admission Status: ER Accout number: [id number] Admission Date: 02-28-2017 : 1940 Admission Diagnosis:PNEUMONIA, UNSPECIFIED ORGANISM Attending: SHIREEN PRINGLE Current LOS: 2 Anticipated DC Date: Planned Disposition: Home or Self Care Primary Insurance: MEDICARE A & B Discharge Planning Comments: CM met with patient to assess discharge planning needs. Patient lives independently at home with his , who will be the one to take him home at discharge. Patient stated that he does not have any stairs to enter in his home. He has a CPAP machine, but that is it. Patient denies any use or need for HH at this time. CM will continue to follow and assist with discharge planning needs. PCP: Adi Estrada in [facility] Carol Vickers ) Beef Pusher: Dinora Willams
--- NOTE | 2017-03-02 20:00 | NUR ---
ASSESSMENT PER FLOWSHEET. PT SITTING IN CHAIR AT BEDSIDE. IV PATENT LEFT HAND SALINE LOCKED. ANTIBIOTIC HUNG PER JUL.
--- NOTE | 2017-03-02 22:14 | NUR ---
RESTING IN BED SR UP X2 CALL LIGHT WITHIN REACH SCD'S ON. C/O INDIGESTION. TUMS TAB 2 PO GIVEN FOR INDIGESTION ALONG WITH SALTINE CRACKERS.
--- NOTE | 2017-03-03 | NUR ---
NPO FOR BRONCH IN AM.
--- NOTE | 2017-03-03 02:51 | NUR ---
EYES CLOSED RESPIRATIONS WITH EASE AND UNLABORED. IV ANTIBIOTICS COMPLETE IN SALINE LOCKED.
[2017-03-03 03:30] VITALS: BP 124/72
--- NOTE | 2017-03-03 04:50 | NUR ---
RESTING QUIETLY REMAINS NPO FOR BRONCH IN AM.
[2017-03-03 05:51] LABS: BASOPHILS 0 % (0-2); EOSINOPHILS 0 % (0-7); HEMATOCRIT 36.4 % (42.0-54.0); HEMOGLOBIN 12.2 g/dL (13.5-17.5); IMMATURE GRANULOCYTES 0.2 % (0-5); LYMPHOCYTES 11.2 % (15-50); MCH 31.2 pg (26.0-34.0); MCHC 33.5 g/dL (31.0-37.0); MCV 93.1 fL (80.0-100.0); MEAN PLATELET VOLUME 9.7 fL (7.4-10.4); MONOCYTES 9.9 % (2-11); NEUTROPHILS 78.7 % (40-80); PLATELET COUNT 186 10x3/uL (130-400); RBC 3.91 10x6/uL (4.20-6.10); RDW 12.6 % (11.5-14.5); WBC 8.9 10x3/uL (4.8-10.8)
[2017-03-03 05:59] LABS: INR 2.23 (0.85-1.17); PROTIME 24.7 SECONDS (11.6-15.0)
[2017-03-03 06:00] LABS: APTT 54.2 SECONDS (22.8-39.4)
[2017-03-03 06:41] LABS: CALC OSMOLALITY 272 mosm/kg (275-300); CALCIUM 9.9 mg/dL (8.5-10.1); CARBON DIOXIDE 31.1 mmol/L (21.0-32.0); CHLORIDE - SERUM 93 mmol/L (98-107); CREATININE - SERUM 0.9 mg/dL (0.6-1.3); GLUCOSE 229 mg/dL (74-106); POTASSIUM - SERUM 3.3 mmol/L (3.5-5.1); SODIUM 133 mmol/L (136-145); UREA NITROGEN 13 mg/dL (7-18); eGFR NON AFRICAN AMERICAN 87 mL/min (90-120)
--- NOTE | 2017-03-03 07:30 | NUR ---
RECIEVED PT DURING WALKING ROUNDS. PT RESTING IN BED WITH NO COMPLAINTS OF PAIN OR DISCOMFORT AT THIS TIME. ASSESSMENT DONE PER FLOWSHEET. BED IN LOW POSITION AND CALL LIGHT WITHIN REACH. WILL CONTINUE TO MONITOR.
--- NOTE | 2017-03-03 08:00 | NUR ---
PROCEUDRE CANCELLED DUE TO PT LABS. PT GIVEN REGULAR DIET. WILL CONTINUE TO MONITOR.
[2017-03-03 08:10] VITALS: BP 196/76
[2017-03-03 12:11] VITALS: BP 135/74
[2017-03-03 17:43] VITALS: BP 112/60; BP 172/82
[2017-03-03 19:30] VITALS: BP 141/78
--- NOTE | 2017-03-03 20:00 | NUR ---
ASSESSMENT PER FLOWSHEET. IV SALINE LOCKED TO RT HAND SITE CLEAR. RESTING QUIETLY DENIES NEEDS.
--- NOTE | 2017-03-03 21:00 | NUR ---
BRO WU PER JUL.
[2017-03-03 23:30] VITALS: BP 144/74
--- NOTE | 2017-03-04 | NUR ---
NPO AT THIS TIME FOR POSSIBLE BRONCH IN AM PENDING LAB RESULTS.
--- NOTE | 2017-03-04 03:00 | NUR ---
EYES CLOSED RESPIRATIONS WITH EASE AND UNLABORED.
--- NOTE | 2017-03-04 03:57 | NUR ---
EYES CLOSED RESPIRATIONS WITH EASE AND UNLABORED.
[2017-03-04 04:00] VITALS: BP 140/70
[2017-03-04 05:40] LABS: BASOPHILS 0 % (0-2); EOSINOPHILS 0 % (0-7); HEMATOCRIT 32.9 % (42.0-54.0); HEMOGLOBIN 11.2 g/dL (13.5-17.5); IMMATURE GRANULOCYTES 0.2 % (0-5); LYMPHOCYTES 11.7 % (15-50); MCH 31.8 pg (26.0-34.0); MCV 93.5 fL (80.0-100.0); MEAN PLATELET VOLUME 9.5 fL (7.4-10.4); MONOCYTES 13.7 % (2-11); NEUTROPHILS 74.4 % (40-80); PLATELET COUNT 214 10x3/uL (130-400); RBC 3.52 10x6/uL (4.20-6.10); RDW 12.4 % (11.5-14.5); WBC 9.7 10x3/uL (4.8-10.8)
[2017-03-04 05:57] LABS: INR 2.95 (0.85-1.17)
[2017-03-04 05:58] LABS: CALC OSMOLALITY 272 mosm/kg (275-300); CALCIUM 9.8 mg/dL (8.5-10.1); CARBON DIOXIDE 31.6 mmol/L (21.0-32.0); CHLORIDE - SERUM 95 mmol/L (98-107); CREATININE - SERUM 0.7 mg/dL (0.6-1.3); GLUCOSE 224 mg/dL (74-106); POTASSIUM - SERUM 3.7 mmol/L (3.5-5.1); SODIUM 132 mmol/L (136-145); UREA NITROGEN 15 mg/dL (7-18); eGFR NON AFRICAN AMERICAN > 90 mL/min (90-120)
--- NOTE | 2017-03-04 07:00 | NUR ---
REPORT RECIEVED ASSUMED CARE. PATIENT IN BED WITH IV INTACT. NO COMPLAINTS AT THIS TIME. CALL LIGHT WITHIN REACH.
[2017-03-04 09:22] VITALS: BP 136/69
--- NOTE | 2017-03-04 12:00 | NUR ---
PATIENT SITTING UP IN BED EATING AT THIS TIME. NO COMPLAINTS. WAS UP TO SHOWER. BSCDS OFF AT HTIS TIME. NO SKIN BREAKDOWN TO LEGS NOTED. CALL LIGHT WITHIN REACH.
[2017-03-04 12:39] VITALS: BP 141/69
--- NOTE | 2017-03-04 13:05 | HP ---
PATIENT: MICHELLE FREIRE MEDICAL RECORD: [id number] ACCOUNT: [id number] LOCATION:D.[facility] : 38 ADMISSION DATE: 02/28/17 HISTORY AND PHYSICAL EXAMINATION Admission History and Physical DATE OF ADMISSION: 02/28/2017 CHIEF COMPLAINT: Fever, chills and shortness of breath. HISTORY OF PRESENT ILLNESS: This is a 76-year-old white male followed by Dr. Joshi, who called me earlier today, saying he had been in the hospital just a few weeks ago with fever and chills and was treated for respiratory infection and he followed up with Dr. Joshi and was doing well, on doxycycline, but states he has had the acute onset just a couple of days ago with fever in a 101 to 102 range and he is having more and more shortness of breath now. I recommended he come into the Emergency Department to be seen. Chest x-ray done today compared with previous film on 02/10/2017 showed nonspecific right lower lobe haziness. It was more prominent than it was seen on the last film with his fever, chills, shortness of breath and this prominence on the chest x-ray, he is being admitted for pneumonia. PAST MEDICAL AND SURGICAL HISTORY: Coronary artery disease, hypertension, diabetes, sick sinus syndrome, history of DVT in both legs in his 30s. He was just made aware at the last hospitalization that he does have COPD and a little asthma. It is said that he has sleep apnea and he is not sure. He states his says he does not have apneic episodes. He does not use a CPAP machine. PAST SURGICAL HISTORY: Hernia repair, cardiac stents, pacemaker placement. DRUG ALLERGIES: None. HOME MEDICATIONS: Aspirin 81 mg a day, Hyzaar 100/25 once a day, Lasix 20 mg once a day, potassium 10 mEq once a day, sotalol 80 mg one half pill twice a day, warfarin 2.5 mg once a day. Breo 100, one inhalation once a day. Ventolin HFA 2 puffs q. 4-6 hours p.r.n. wheeze, metformin 500 mg, he takes half pill twice a day. SOCIAL HISTORY: , retired. FAMILY HISTORY: Father at 56 of colon cancer. No diabetes, no heart disease. Mother in her early 70s of Parkinson's. She also had polio as a child. Sister has diabetes and a brother of non-Hodgkin's lymphoma. HABITS: He is a former smoker. He has a couple of drinks a night. He does not use any drugs. REVIEW OF SYSTEMS: GENERAL: He notes a 15-pound weight loss over the last several months trying to control the portions that he eats. HEENT: No particular sinus or allergy problems. RESPIRATORY: Again, has been told he has emphysema/COPD and a little asthma, recent hospitalization with exacerbation and possible pneumonia. CARDIAC: History of coronary artery disease with stent, sick sinus syndrome, HISTORY AND PHYSICAL [id number] MICHELLE FREIRE followed by Dr. Michel. GASTROINTESTINAL: Has occasional reflux, dyspepsia, a little constipation. GENITOURINARY: No significant problems there. MUSCULOSKELETAL: No significant problems there. NEUROLOGIC: No headaches or seizures. PSYCHIATRIC: No depression or melancholia. PHYSICAL EXAMINATION: VITAL SIGNS: Blood pressure 123/72, pulse 92, O2 sat 94% on 2 liters in the ER. GENERAL: He is awake, alert, does not appear in acute distress. HEENT: Grossly within normal limits. NECK: Supple. No JVD or bruits. LUNGS: Decreased breath sounds in the bases bilaterally. No wheezing heard. ABDOMEN: Soft, flat, nontender. EXTREMITIES: He has compression stockings on, which he has worn faithfully for many years. No significant edema. NEUROLOGIC: Intact. LABORATORY DATA: CBC with a white count of 8900, hemoglobin 11.4, hematocrit 34.1. Basic metabolic panel is unremarkable. Lactic acid 1.0. Liver functions are normal. ProBNP 258. Cardiac enzymes are negative. Chest x-ray shows nonspecific right lower lobe haziness, more prominent than last time done on 02/10/2017. ASSESSMENT: 1. Pneumonia. 2. Chronic obstructive pulmonary disease. 3. Noninsulin dependent diabetes. 4. Hypertension. PLAN: He is admitted. We will give him respiratory meds and because of his recent hospitalization, we will treat this for community-acquired pneumonia. Other tests and procedures as warranted. TRANSINT:[id number] Voice Confirmation ID: [id number] DOCUMENT ID: [id number] ALEJANDRINA TARANGO MD at 1305 CC: [id number] DICTATION DATE: 02/28/17 610 WELLNESS RN: 02/[id number] ADM IN [facility] [address] [id number]
[2017-03-04 15:59] VITALS: BP 139/59
--- NOTE | 2017-03-04 18:05 | NUR ---
PATIENT PLASMA STARTED AT THIS TIME. IV INTACT. NO COMPLAINTS. VS STABLE.
--- NOTE | 2017-03-04 18:20 | NUR ---
PATIENT PLASMA DONE AT THIS TIME. VS STABLE. NO OCMPLAINTS AT THIS TIME. IV INTACT. CALL LIGHT WITHIN REACH.
--- NOTE | 2017-03-04 18:30 | NUR ---
PATIENT SECOND UNIT OF PLASMA STARTED. VS STABLE. NO COMPLAINTS. IV INTACT. CALL LIGHT WITHIN REACH.
--- NOTE | 2017-03-04 18:55 | NUR ---
PATIENT SECOND UNIT FINISHED AT THIS TIME. NO COMPLAINTS OR SIGNS OF DISTRESS. IV INTACT. VS STABLE. CALL LIGHT WITHIN REACH. BSCDS ON.
--- NOTE | 2017-03-04 19:00 | NUR ---
REPORT RECEIVED AND CARE OF PT ASSUMED. PT LYING IN HIGH DE LA FUENTE'S POSITION WITH EYES CLOSED AND EASY RESPIRATIONS. O2 IN USE VIA NC AT 2L. WILL MONITOR CLOSLEY FOR NEEDS.
[2017-03-04 19:58] LABS: INR 1.98 (0.85-1.17); PROTIME 22.5 SECONDS (11.6-15.0)
[2017-03-04 20:00] VITALS: BP 124/94
--- NOTE | 2017-03-04 21:25 | NUR ---
HS MEDICATIONS GIVEN. WILL CONTINUE TO MONITOR FOR NEEDS.
[2017-03-05] VITALS: BP 142/69
[2017-03-05 04:00] VITALS: BP 156/83
[2017-03-05 06:28] LABS: INR 2.01 (0.85-1.17); PROTIME 22.8 SECONDS (11.6-15.0)
--- NOTE | 2017-03-05 07:00 | NUR ---
REPORT RECIEVED ASSUMED CARE. PATIENT IN BED WITH NO COMPLAINTS AT THIS TIME. IV INTACT. CALL LIGHT WITHIN REACH. DR. BAJWA ORDERED 2 UNITS OF FFPS. WAITING FOR BB WHEN READY.
[2017-03-05 08:38] VITALS: BP 161/82
--- NOTE | 2017-03-05 09:30 | NUR ---
1ST UNIT OF FFPS STARTED. IV INTACT. NO COMPLAINTS. CALL LIGHT WITHIN REACH.
--- NOTE | 2017-03-05 09:50 | NUR ---
PATIENT COMPLAINTS OF ITCHING. DR. BAJWA NOTIFIED. NEW ORDERS RECIEVED AND CARRIED OUT. PATIENT IV IN RIGHT HAND SWELLING SMALL AMOUNT. STARTED NEW IV IN LEFT FA 20 G X 1 STICK. TOLERATED WITH SMALL AMOUNT OF MEDS. SOLUMEDROL AND BENADRYL GIVEN ORDERED.
--- NOTE | 2017-03-05 10:15 | NUR ---
PATIENT SECOND UNIT OF FFPS STARTED. VS STABLE NO COMPLAINTS AT THIS TIME. IV INTACT. CALL LIGHT WITHIN REACH.
--- NOTE | 2017-03-05 10:40 | NUR ---
FFPS FINISHED. PATIENT VS STABLE WITH NO COMPLAINTS. IV INTACT. WILL CONTINUE TO MONITOR. CALL LIGHT WITHINR EACH.
--- NOTE | 2017-03-05 12:20 | NUR ---
CALLED LAB ABOUT STAT PT/ INR NOT DONE. STATED THEY WERE BUSY IN ER AND WOULD BE HERE VIOL[place]. EXPLAINED PATIENT WAS SUPPOSE TO HAVE PROCEDURE AND NEEDED LAB TO SEE IF IT WOULD BE DONE. STATED THEY WOULD BE HERE TO DRAW [place].
[2017-03-05 13:01] VITALS: BP 154/82
[2017-03-05 13:11] LABS: INR 2.1 (0.85-1.17); PROTIME 23.6 SECONDS (11.6-15.0)
--- NOTE | 2017-03-05 13:15 | NUR ---
DR. BAJWA CANCELED BRONCH BC PT/INR TOO HIGH. HE SPOKE WITH PATIENT. WAITING FOR URVASHI STILL.
--- NOTE | 2017-03-05 15:30 | NUR ---
CALLED CLINICAL NURSING PROFESSOR TO CHECK ON URVASHI TIME. GENE ANSWERED AND STATED SHE WOULD TRANSFER PHONE TO BACK BC SHE DOESNT DEAL WITH THAT. TRANSFERRED WITH NO ANSWER.
[2017-03-05 16:18] VITALS: BP 149/80
--- NOTE | 2017-03-05 16:45 | NUR ---
TRIED TO REACH ASL INTERPRETER AGAIN WITH NO REPONSE.
--- NOTE | 2017-03-05 18:00 | NUR ---
SPOKE WITH LEEANN CEBALLOS ABOUT PATIENT GETTING URVASHI. STATED IT HAD BEEN CANCELED DUE TO PT/INR TOO HIGH. EXPLAINED THAT NO ONE HAD NOTIFIED ME OR THE PATIENT. AND ASKED FOR REGULAR DIET. REG DIET ORDERED FOR PATIENT.
--- NOTE | 2017-03-05 18:30 | NUR ---
PATIENT SITTING UP IN BED WITH NO COMPLAINTS EATING. IV INTACT. CALL LIGHT WITHIN REACH.
--- NOTE | 2017-03-05 19:00 | NUR ---
REPORT RECEIVED AND CARE OF PT ASSUMED. PT LYING IN HIGH DE LA FUENTE'S POSITION WATCHING TV. IV IN LEFT HAND PATENT WITH NS INFUSING AT KVO. WILL MONITOR CLOSLEY FOR NEEDS.
[2017-03-05 20:00] VITALS: BP 138/66
--- NOTE | 2017-03-05 20:21 | NUR ---
HS MEDICATIONS GIVEN. WILL CONTINUE TO MONITOR FOR NEEDS.
--- NOTE | 2017-03-05 23:35 | NUR ---
CHANGED IV FLUIDS BACK TO D5 1/2 NS @ 35 PER ADDITIONAL ORDER TO NOT ADD POTASSIUM.
[2017-03-06] VITALS (13 sets, daily range): BP systolic 145–174; BP diastolic 71–98
--- NOTE | 2017-03-06 00:34 | NUR ---
GAVE PT CHOCOLATE ICE CREAM FOR SHACK. WILL CONTINUE TO MONITOR FOR NEEDS.
--- NOTE | 2017-03-06 00:37 | NUR ---
PLACED ORDER FOR CASE MANAGEMENT CONSULT FOR WEDNESDAY MORNING PER PT REQUEST...WANTS TO WAIT TILL THEN WHEN HIS IS HERE.
--- NOTE | 2017-03-06 07:08 | NUR ---
REPORT RECEIVED FROM TEACHER ADVISOR NURSE. CALL LIGHT IN REACH.
--- NOTE | 2017-03-06 08:25 | NUR ---
ASSESSMENT COMPLETED. SCDs TO BLE. DENIES PAIN OR NEEDS. CALL LIGHT IN REACH. WILL CONTINUE WITH PLAN OF CARE.
--- NOTE | 2017-03-06 10:58 | NUR ---
AM MEDS ADMINISTERED. CALL LIGHT IN REACH.
--- NOTE | 2017-03-06 12:10 | NUR ---
NO NEEDS VOICED AT THIS TIME. CALL LIGHT IN REACH.
--- NOTE | 2017-03-06 14:36 | NUR ---
NOON AND AFTERNOON MEDS ADMINISTERED. WILL START FFP AFTER IV ABX IS COMPLETED.
--- NOTE | 2017-03-06 15:15 | NUR ---
FFP UNIT 1 INITIATED PER NAI JONES. VSS. WILL CONTINUE TO MONITOR.
--- NOTE | 2017-03-06 15:40 | NUR ---
1ST UNIT OF FFP COMPLETED. 2ND UNIT OF FFP INITIATED.
--- NOTE | 2017-03-06 16:05 | NUR ---
2ND UNIT OF FFP STARTED. VS STILL SIABLE. CALL LIGHT IN REACH.
--- NOTE | 2017-03-06 16:46 | NUR ---
STATES HE IS ITCHING ON HIS BACK AND THIS HAPPENED AFTER THE LAST TIME HE HAD FFP. SPOKE WITH DR. PRINGLE. NEW ORDERS FOR BENADRYL.
--- NOTE | 2017-03-06 17:13 | NUR ---
BENADRYL SIVP. NYSTATIN PO. CALL LIGHT IN REACH,
--- NOTE | 2017-03-06 17:54 | NUR ---
SPOKE WITH LAB. STATES REACTION FORM DOES NOT HAVE TO BE FILLED OUT BECAUSE THE ITCHING STARTED 35 MINUTES AFTER 2ND UNIT WAS COMPLETED.
--- NOTE | 2017-03-06 17:59 | NUR ---
PT SITTING UP IN BED WITH NO VISABLE SIGNS OF PAIN OR DISCOMFORT AT THIS TIME. BED IN LOW POSITION AND CALL LIGHT WITHIN REACH. WILL CONTINUE TO MONITOR.
--- NOTE | 2017-03-06 18:24 | NUR ---
NO CHANGES IN INITIAL ASSESSMENT. CALL LIGHT IN REACH. SCDs TO BLE. WILL CONTINUE WITH PLAN OF CARE/
--- NOTE | 2017-03-06 19:00 | NUR ---
REPORT RECEIVED AND CARE OF PT ASSUMED. PT LYING IN LOW DE LA FUENTE'S POSITION WITH EYES CLOSED. O2 IN USE VIA NC AT 3.5 L. POWELL CATHETER DRAINING TO GRAVITY WITH YELLOW URINE IN COLLECTION BAG. WILL MONITOR CLOSELY FOR NEEDS.
--- NOTE | 2017-03-06 19:00 | NUR ---
REPORT RECEIVED AND CARE OF PT ASSUMED. PT LYING IN SEMI DE LA FUENTE'S POSITION WITH EYES CLOSED AND UNLABORED BREATING. WILL MONITOR CLOSLEY FOR NEEDS.
--- NOTE | 2017-03-06 19:20 | NUR ---
PRBC INFUSION COMPLETE AND LINE FLUSHING. VITALS STABLE AND PT IS AFEBRILE. CAREGIVER IS AT BEDSIDE.
--- NOTE | 2017-03-06 20:57 | NUR ---
HS MEDICATIONS GIVEN. PT TURNED PER TURN SCHEDULE. WILL CONTINUE TO MONITOR FOR NEEDS. BED ALARM IN USE.
--- NOTE | 2017-03-06 20:57 | NUR ---
HS MEDICATIONS GIVEN. WILL CONTINUE TO MONITOR FOR NEEDS.
--- NOTE | 2017-03-06 23:05 | NUR ---
PT RESTING QUIETLY IN SUPINE POSITION WITH EYES CLOSED AND EVEN RESPIRATIONS. WILL CONTINUE TO MONITOR FOR NEEDS.
[2017-03-07] VITALS: BP 166/79
--- NOTE | 2017-03-07 00:30 | NUR ---
PT RESTING QUIETLY IN SEMI DE LA FUENTE'S POSITION WITH EYES CLOSED AND UNLABORED BREATHING. WILL CONTINUE TO MONITOR FOR NEEDS. CALL LIGHT WITHIN REACH.
--- NOTE | 2017-03-07 03:15 | NUR ---
GAVE CHOCOLATE ICE CREAM FOR SNACK. WILL CONTINUE TO MONITOR FOR NEEDS.
[2017-03-07 04:00] VITALS: BP 187/97
--- NOTE | 2017-03-07 05:00 | NUR ---
DAILY WT DOCUMENTED.
--- NOTE | 2017-03-07 05:12 | NUR ---
PT LYING IN HIGH DE [place] F[place]ENT[place]'S POSITION WATCHING TV. NO NEEDS VOICED AT THIS TIME.
[2017-03-07 05:18] LABS: BASOPHILS 0.1 % (0-2); EOSINOPHILS 0.6 % (0-7); HEMATOCRIT 36.4 % (42.0-54.0); HEMOGLOBIN 12.2 g/dL (13.5-17.5); IMMATURE GRANULOCYTES 2.6 % (0-5); LYMPHOCYTES 17.8 % (15-50); MCH 31.2 pg (26.0-34.0); MCHC 33.5 g/dL (31.0-37.0); MCV 93.1 fL (80.0-100.0); MEAN PLATELET VOLUME 9.1 fL (7.4-10.4); MONOCYTES 10.7 % (2-11); NEUTROPHILS 68.2 % (40-80); PLATELET COUNT 326 10x3/uL (130-400); RBC 3.91 10x6/uL (4.20-6.10); RDW 12.5 % (11.5-14.5); WBC 9.8 10x3/uL (4.8-10.8)
[2017-03-07 05:49] LABS: INR 1.6 (0.85-1.17)
--- NOTE | 2017-03-07 07:45 | NUR ---
LYING IN BED,WITHOUT DISTRESS.ASSESSMENT PER FLOW SHEET.PT WIHTOUT NEEDS AND DENIES PAIN.CALL LIGHT IN REACH
[2017-03-07 09:33] VITALS: BP 144/76
[2017-03-07 12:09] VITALS: BP 136/86
--- NOTE | 2017-03-07 19:00 | NUR ---
REPORT RECEIVED AND CARE OF PT ASSUMED. PT LYING IN HIGH DE [place] F[place]'S POSITION WATCHING TV. IV IN LEFT FA PATENT WITH NS INFUSING AT 20 ML / HR. WILL MONITOR GENESISLEY FOR NEEDS.
--- NOTE | 2017-03-07 19:26 | NUR ---
REMINS WITHOUT CHANGE.CONT PLAN OF CARE
[2017-03-07 20:00] VITALS: BP 140/77
--- NOTE | 2017-03-07 21:05 | NUR ---
HS SNACK OF CHOCOLATE ICE CREAM GIVEN TO PT. WILL CONTINUE TO MONITOR FOR NEEDS.
--- NOTE | 2017-03-07 21:15 | NUR ---
IV IN LEFT FA LEAKING. REMOVED WITH CATHETER TIP INTACT. RE-SITED TO RIGHT FA IN 2 STICKS. IV FLUIDS RE-STARTED. WILL CONTINUE TO MONITOR FOR NEEDS.
--- NOTE | 2017-03-07 21:20 | NUR ---
HS MEDICATIONS GIVEN. WILL CONTINUE TO MONITOR FOR NEEDS.
[2017-03-08] VITALS: BP 167/83
--- NOTE | 2017-03-08 01:15 | NUR ---
PT RESTING IN HIGH DE [place] FUENTE'S POSITION WITH EYES CLOSED AND UNLABORED BREATHING. CALL LIGHT WITHIN REACH.
[2017-03-08 05:48] LABS: BASOPHILS 0.1 % (0-2); EOSINOPHILS 0.4 % (0-7); HEMATOCRIT 39.4 % (42.0-54.0); IMMATURE GRANULOCYTES 2.9 % (0-5); LYMPHOCYTES 15.5 % (15-50); MCV 93.8 fL (80.0-100.0); MEAN PLATELET VOLUME 9.2 fL (7.4-10.4); MONOCYTES 8.8 % (2-11); NEUTROPHILS 72.3 % (40-80); PLATELET COUNT 384 10x3/uL (130-400); RDW 12.6 % (11.5-14.5); WBC 12.1 10x3/uL (4.8-10.8)
[2017-03-08 05:58] LABS: INR 1.55 (0.85-1.17); PROTIME 18.5 SECONDS (11.6-15.0)
[2017-03-08 06:20] LABS: CALC OSMOLALITY 278 mosm/kg (275-300); CALCIUM 10.3 mg/dL (8.5-10.1); CARBON DIOXIDE 30.1 mmol/L (21.0-32.0); CHLORIDE - SERUM 94 mmol/L (98-107); CREATININE - SERUM 0.9 mg/dL (0.6-1.3); POTASSIUM - SERUM 4.2 mmol/L (3.5-5.1); SODIUM 132 mmol/L (136-145); UREA NITROGEN 20 mg/dL (7-18); eGFR NON AFRICAN AMERICAN 87 mL/min (90-120)
[2017-03-08 06:21] LABS: GLUCOSE 293 mg/dL (74-106)
--- NOTE | 2017-03-08 08:15 | NUR ---
AWAKE AND ALERT. ORIENTED X3. NO C/O THIS AM. LUNGS ARE CLEAR BILATERALLY BUT DIMINISHED IN LOWER LOBES. PRODUCTIVE COUGH REPORTED WITH YELLOWISH SPUTUM. SKIN IS INTACT WITHOUT REDNESS. IV TO RIGHT FOREARM IS PATNET WITHOUT REDNESS AT INSERTION SITE. SCD'S IN PLACE. DENIES NEEDS. BREAKFAST SERVED IN ROOM.
[2017-03-08 08:30] VITALS: BP 159/85
--- NOTE | 2017-03-08 12:15 | NUR ---
SITTING UP IN BED EATING LUNCH. NO C/O AT THIS TIME. DENIES NEEDS.
[2017-03-08 13:25] VITALS: BP 162/81
--- NOTE | 2017-03-08 13:35 | NUR ---
NUTRITION F/U CHART REVIEWED. PT TOLERATING REG DIET WITH 100% INTAKE MEALS. REMAINS AT LOW NUTRITIONAL RISK. RD FOLLOWING
--- NOTE | 2017-03-08 15:00 | NUR ---
SITTING UP IN BED. DENIES NEEDS.
[2017-03-08 16:00] VITALS: BP 134/66
--- NOTE | 2017-03-08 18:48 | NUR ---
ATE ALL OF SUPPER. NO CHANGES NOTED. DENIES NEEDS.
[2017-03-08 20:00] VITALS: BP 139/91
--- NOTE | 2017-03-08 20:00 | NUR ---
ASSESSMENT PER FLOWSHEET. IV PATENT RT FOREARM OF NS AT 20CC'S/HR SITE CLEAR. MEDS GIVEN PER JUL.
--- NOTE | 2017-03-08 21:58 | NUR ---
AWAKE ALERT WATCHING TV DENIES NEEDS SCD'S ON DENIES NEEDS.
[2017-03-09] VITALS (9 sets, daily range): BP systolic 117–153; BP diastolic 72–95
--- NOTE | 2017-03-09 00:54 | NUR ---
REMAINS NPO FOR TESTS IN AM. RESTING QUIETLY.
--- NOTE | 2017-03-09 03:45 | NUR ---
PERMITS SIGNED FOR URVASHI WITH TIVA AND PLACED ON CHART.
[2017-03-09 06:27] LABS: BASOPHILS 0.1 % (0-2); EOSINOPHILS 0.1 % (0-7); HEMATOCRIT 39.6 % (42.0-54.0); HEMOGLOBIN 13.3 g/dL (13.5-17.5); IMMATURE GRANULOCYTES 2.4 % (0-5); LYMPHOCYTES 13.7 % (15-50); MCH 31.4 pg (26.0-34.0); MCHC 33.6 g/dL (31.0-37.0); MCV 93.4 fL (80.0-100.0); MEAN PLATELET VOLUME 9.2 fL (7.4-10.4); MONOCYTES 5.1 % (2-11); NEUTROPHILS 78.6 % (40-80); PLATELET COUNT 410 10x3/uL (130-400); RBC 4.24 10x6/uL (4.20-6.10); RDW 12.6 % (11.5-14.5); WBC 13.2 10x3/uL (4.8-10.8)
--- NOTE | 2017-03-09 06:30 | NUR ---
REMAINS NPO FOR PROCEDURES. MEDS GIVEN PER JUL.
[2017-03-09 06:44] LABS: INR 1.42 (0.85-1.17); PROTIME 17.3 SECONDS (11.6-15.0)
[2017-03-09 06:53] LABS: CALC OSMOLALITY 273 mosm/kg (275-300); CALCIUM 10.2 mg/dL (8.5-10.1); CARBON DIOXIDE 29.2 mmol/L (21.0-32.0); CHLORIDE - SERUM 93 mmol/L (98-107); CREATININE - SERUM 0.8 mg/dL (0.6-1.3); GLUCOSE 282 mg/dL (74-106); POTASSIUM - SERUM 4.6 mmol/L (3.5-5.1); SODIUM 130 mmol/L (136-145); UREA NITROGEN 20 mg/dL (7-18); eGFR NON AFRICAN AMERICAN > 90 mL/min (90-120)
--- NOTE | 2017-03-09 07:50 | NUR ---
AWAKE AND ALERT. ORIENTED X3. NO C/O AT THIS TIME. LUNGS ARE DIMINISHED THROUGHT LOWER LOBES THIS AM. REPORTS PRODUCTIVE COUGH. WILL MONITOR. SKIN IS INTACT WITHOUT REDNESS. IV TO RIGHT FOREARM IS PATNET WITHOUT REDNESS AT INSERTION SITE. SCD;S IN PLACE. DENIES NEEDS. NPO FOR PROCEDURE TODAY.
--- NOTE | 2017-03-09 09:30 | NUR ---
OFF UNIT VIA BED FOR URVASHI.
--- NOTE | 2017-03-09 12:45 | NUR ---
RETURNED FROM PROCEDURES. A/O X3. NO C/O AT THIS TIME.
--- NOTE | 2017-03-09 14:00 | NUR ---
VSS. RESTING QUIETLY AT THIS TIME. DENIES NEEDS.
--- NOTE | 2017-03-09 15:30 | NUR ---
UP TO BR PER SELF. VOIDED 700CC CLEAR YELLOW URINE. POSITIONED IN BED FOR COMFORT.
--- NOTE | 2017-03-09 16:42 | TEE ---
PATIENT:MICHELLE FREIRE MEDICAL RECORD: [id number] LOCATION:D. D.221 AGE OF PATIENT: 76 ADMISSION DATE: 02/28/17 SEX: M REFERRING PHYSICIAN: INTERPRETING PHYSICIAN: LEONEL WHITE MD TRANSESOPHAGEAL ECHOCARDIOGRAM URVASHI CHARGE Y INDICATIONS: ASSESS FOR ENDOCARDITIS PREMEDICATIONS: PATIENT'S RESPONSE PROCEDURE DOPPLER MEASUREMENTS: LVIT LA PA 98.0 RA LVOT 110 RVOT 79.0 Asc. Ao 141 AV Gradient Peak 8.0 AV Mean 3.7 AV Area 1.8 MV Gradient Peak 5.4 MV Mean 1.8 MV Area INTERPRETATION: Doppler: 2-D: ALL VALVES CLEAN COLOR FLOW DOPPLER NORMAL SALINE STUDY: MISCELLANOUS: DIAGNOSIS: PLAN: Bucket Pusher:1 Dr. White Poultry Scientist: Malena FLETCHER COMMENTS: DATE OF SERVICE: 03/09/2017 Transesophageal echo INDICATION: Fever of unknown origin, evaluate for endocarditis. FINDINGS: 1. Left ventricular chamber size is within normal limits. Left ventricular systolic function is normal. Overall ejection fraction estimated at 60%. TRANSESOPHAGEAL ECHOCARDIOGRAM REPORT [id number] MICHELLE FREIRE 2. Left atrium, right atrium, and right ventricular chamber sizes are within normal limits. 3. Valvular structures have normal structure and motion. No evidence of endocarditis. 4. Doppler interrogation only reveals trace mitral regurgitation, trace tricuspid regurgitation. No other valvular insufficiency or stenosis. 5. No evidence of pericardial effusion or left ventricular thrombus. TRANSINT:[id number] Voice Confirmation ID: [id number] DOCUMENT ID: [id number] at 1642 CC: [id number] DICTATION DATE: 03/09/17 105 AVIONICS SYSTEMS REPAIRER: 03/09/17 1406 ADM IN [facility] [address] [place] [address]
--- NOTE | 2017-03-09 18:17 | NUR ---
ATE OVER HALF OF SUPPER. DENIES NEEDS. NO CHANGES NOTED.
--- NOTE | 2017-03-09 20:00 | NUR ---
ASSESSMENT PER FLOWSHEET. IV PATENT RT FOREARM OF NS AT 20CC'S/HR SITE CLEAR. O2 AT 2L/M PER NC WEARS PRN. TELM. SHOWS SR W/BBB AND PAC'S. HR 71. SCD'S ON. SR UP X2 CALL LIGHT WITHIN REACH. DENIES NEEDS.
--- NOTE | 2017-03-09 21:00 | NUR ---
MEDS GIVEN PER JUL. PRUNE JUICE COCKTAIL GIVEN PO FOR CONSTIPATION. VOIDS WELL IN URINAL.
--- NOTE | 2017-03-09 23:13 | NUR ---
EYES CLOSED RESPIRATIONS WITH EASE AND UNLABORED.
[2017-03-10] VITALS: BP 125/75
--- NOTE | 2017-03-10 00:20 | NUR ---
AWAKE ALERT WATCHING TV. DENIES NEEDS. VOIDED IN URINAL AND HAD A MODERATE SIZE SOFT FORMED BM,
--- NOTE | 2017-03-10 02:15 | NUR ---
MEDS GIVEN PER MAR.
--- NOTE | 2017-03-10 04:49 | NUR ---
EYES CLOSED RESPIRATIONS WITH EASE AND UNLABORED.
[2017-03-10 05:20] LABS: INR 1.35 (0.85-1.17); PROTIME 16.6 SECONDS (11.6-15.0)
--- NOTE | 2017-03-10 07:10 | NUR ---
AWAKE AND ALERT WITH RESPIRATIONS EVEN AND NON LABORED. OXYGEN ON 2L VIA NC. PROVIDED PT WITH ICE WATER AT THIS TIME. UP AD CLAUDINE. CALL LIGHT IN REACH, WILL CONTINUE WITH PLAN OF CARE.
--- NOTE | 2017-03-10 08:36 | NUR ---
AWAKE AND ALERT. SCHEDULED MEDICATIONS ADMINISTERED WITHOUT DIFFICULTY AT THIS TIME. DENIES PAIN OR NEEDS AT PRESENT TIME. CALL LIGHT IN REACH, WILL CONTINUE WITH PLAN OF CARE.
[2017-03-10 08:37] VITALS: BP 212/80
--- NOTE | 2017-03-10 10:21 | NUR ---
ANCEF ORDER FAXED TO [facility] FOR PRICING FOR HOME IV ABX. AWAITING PRICES
[2017-03-10 12:11] VITALS: BP 141/75
--- NOTE | 2017-03-10 12:35 | NUR ---
DENIES NEEDS AT THIS TIME. CALL LIGHT IN REACH, WILL CONTINUE WITH PLAN OF CARE.
[2017-03-10] MEDS ORDERED: Ancef 2 GM/Dextrose IV (12:54)
[2017-03-10] MEDS ORDERED: COUMADIN2.5 MG PO (12:55)
[2017-03-10] MEDS ORDERED: MEDROL DOSE PACK4 MG PO (12:58)
--- NOTE | 2017-03-10 14:52 | NUR ---
PATIENT DISCHARGING TODAY HOME WITH IV ABX FROM [facility] TO FOLLOW WILL PICK PATIENT UP AND DRIVE HOME. PATIENT DENIES ANY OTHER NEEDS AT THIS TIME. CM WILL CONTINUE TO HELP AND ASSIST WITH DISCHARGE PLANNING NEEDS.
--- NOTE | 2017-03-10 15:04 | NUR ---
REFERRAL SENT TO [facility] HOME
--- NOTE | 2017-03-10 16:01 | NUR ---
IV TO LEFT WRIST D/C WITH CATH TIP INTACT.
--- NOTE | 2017-03-10 16:51 | NUR ---
DISCHARGE PAPERWORK PROVIDED AND REVIEWED WITH PT AND HIS SPOUSE. DENIES QUESTIONS OR CONCERNS.
[2017-03-11 21:08] LABS: AFB SPECIMEN PROCESSING Concentration (())
--- NOTE | 2017-03-12 10:35 | OP ---
PATIENT NAME: MICHELLE VICKERS MEDICAL RECORD: [id number] :38 LOCATION:D.MS [facility] ADMISSION DATE:02/28/17 SURGEON: HILARIO HITCHCOCK MD DATE OF OPERATION: 03/01/2017 PROCEDURE: Fiberoptic bronchoscopy. INDICATION: Mr. Vickers is a 76-year-old gentleman who was recently admitted with a COPD exacerbation. He has a CT scan of the chest, which showed questionable tracheal lesion. Fiberoptic bronchoscopy was carried out to inspect the airway and get a specimen for culture and sensitivity. PROCEDURE IN DETAIL: After getting conscious sedation with TIVA, the fiberoptic bronchoscope was passed through the mouth. The epiglottis was normal. The vocal cords were normal, moving equally on phonation. The main trachea was normal. There was thick whitish secretions in the trachea. The audrey was sharp. The left main bronchus was normal. There was also thick whitish secretion in the left main bronchus. The subsegment to the left upper lobe, left lower lobe within normal range. There was bronchitic change bled easily by touching by the bronchoscope and the patient was coughing. The right main bronchus was normal. There was also thick yellow whitish secretions in the right main bronchus and the bronchus intermedius. The subsegment to the right upper lobe, right middle lobe, right lower lobe within normal range. No endobronchial lesion was seen. The patient has bronchomalacia. The left main bronchus and the right main bronchus was totally occluded with coughing and expiration. No endobronchial lesion was seen. Specimen washing was obtained and sent for routine culture and sensitivity, AFB and fungus and cytology. Overall, the patient reports tolerated the procedure well. TRANSINT:[id number] Voice Confirmation ID: [id number] DOCUMENT ID: [id number] HILARIO HITCHCOCK MD at 1035 CC: [id number] DICTATION DATE: 03/09/17 1620 PRIVACY ANALYST: 03/09/17 1721 DIS IN 03/10/[address] [place] [address]
[2017-03-12 12:15] LABS: FUNGUS STAIN Final report (())
--- NOTE | 2017-03-29 09:15 | EC ---
PATIENT:MICHELLE FREIRE DATE OF SERVICE: 02/28/17 SEX: M MEDICAL RECORD: [id number] DATE OF : 38 LOCATION:D.[facility] AGE OF PATIENT: 76 ADMISSION DATE: 02/28/17 REFERRING PHYSICIAN: INTERPRETING PHYSICIAN: BETHEL BERNAL MD ECHOCARDIOGRAM REPORT ECHO CHARGES 4 ECHO COMPLETE CLINICAL DIAGNOSIS: ECHOCARDIOGRAPHIC MEASUREMENTS (adult normal given) AC root (d.<3.7cm) 3.8 cm LV Septum d (<1.2 cm> 1.6 cm Valve Excursion 1.8 cm LV Septum (systole) 2.2 cm Left Atria (s.<4.0cm> 3.0 cm LVPW d(<1.2cm) 1.5 cm RV (d.<2.3cm) 3.3 cm LVPW (sytole) 2.3 cm LV diastole(<5.6CM) 5.8 cm MV E-F(>70mm/sec) cm LV systole 4.1 cm LVOT Diameter 2.0 cm MV exc.(>10mm) cm Est.ejection fraction (50-75%) % Pericardial Effusion N DOPPLER: LVIT cm/sec A 85.0 cm/sec E 101 cm/sec LA cm/sec RVSP 40.1 mmHg LVOT 110 cm/sec AOP1/2T m/s Asc. Ao 141 cm/sec RVOT 79.0 cm/sec RA cm/sec PA 98.0 cm/sec AV Gradient Peak 8.0 mmHg AV Mean 3.7 mmHg AV Area 1.8 cm MV Gradient Peak 5.4 mmHg MV Mean 1.8 mmHg MV Area cm COMMENTS: Banking Manager: Gretchen CAMPOVERDE [employer] Member Services Coordinator: 4 Dr. Bernal TAPE# PACS DATE OF SERVICE: 03/03/2017 PROCEDURE: Transthoracic echocardiogram. FINDINGS: 1. The left ventricle has ifqb-[id number] concentric left ventricular hypertrophy. Inflow characteristics appear to be normal. The endocardium was difficult to visualize. There appears to be mild global hypokinesis, ejection fraction 45% to 50%. 2. The right ventricle has right ventricular hypertrophy and is mildly dilated. ECHOCARDIOGRAM REPORT [id number] MICHELLE FREIRE 3. The left atrium is normal. 4. Aortic valve is normal. There is a slightly dilated aortic root. 5. Tricuspid valve has mild tricuspid regurgitation. The RVSP is 40 mmHg. CONCLUSIONS: The patient's echo quality was difficult to interpret. The patient is tachycardic. There appears to be a mild decrease globally in LV systolic function and evidence of mild hypertensive heart disease. TRANSINT:[id number] Voice Confirmation ID: [id number] DOCUMENT ID: [id number] 03/10/2017 Edited to correct date of service, dmm. BETHEL BERNAL MD at 0915 CC: [id number] DICTATION DATE: 03/04/17 0943 COLLEGE ADMINISTRATOR: 03/04/17 1004 DIS IN 03/10/17 [facility] [address] [place] [address]
[2017-04-07 07:31] LABS: FUNGUS MYCOLOGY CULTURE Final report (())
[2017-04-29 11:16] LABS: ACID FAST CULTURE Negative (()); ACID FAST SMEAR Negative (())
== END 2017-03-10 17:10 | disposition home health service (06) | DRG 872 ==
LOC: D.ER 14:12 → D.MS 17:56 → D.SDCHOLD 03-05 18:24 → D.MS 03-05 18:29
PROVIDERS: Family Medicine; Internal Medicine Pulmonary Disease; ADMIT Family Medicine
PROC: 0B978ZZ Drainage of Left Main Bronchus, Via Natural or Artificial Opening Endoscopic (ICD-10-PCS; principal; 2017-03-01)
PROC: 0B938ZZ Drainage of Right Main Bronchus, Via Natural or Artificial Opening Endoscopic (ICD-10-PCS; 2017-03-01)
PROC: 05HC33Z Insertion of Infusion Device into Left Basilic Vein, Percutaneous Approach (ICD-10-PCS; 2017-03-10)
PROC: B54NZZA Ultrasonography of Left Upper Extremity Veins, Guidance (ICD-10-PCS; 2017-03-10)
DX: A41.01 Sepsis due to Methicillin susceptible Staphylococcus aureus (principal); J44.1 Chronic obstructive pulmonary disease with (acute) exacerbation; J45.901 Unspecified asthma with (acute) exacerbation; B37.0 Candidal stomatitis; J98.09 Other diseases of bronchus, not elsewhere classified; E11.9 Type 2 diabetes mellitus without complications; I10 Essential (primary) hypertension; I48.91 Unspecified atrial fibrillation; Z79.01 Long term (current) use of anticoagulants; G35 Multiple sclerosis; I25.10 Atherosclerotic heart disease of native coronary artery without angina pectoris; D64.9 Anemia, unspecified; Z95.0 Presence of cardiac pacemaker

== ENCOUNTER → 2017-03-15 16:10 | Outpatient (CLI) | payer MEDICARE, OTHER ==
[2017-02-28 20:15] VITALS: BMI 31.9
[~2017-03-15 16:10] MED LIST changes: +Ancef 2 GM/Dextrose IV; +BREO ELLIPTA 11 EACH INH; +GLUCOPHAGE500 MG PO; +VENTOLIN HFA18 GM INH
[2017-03-15 22:56] LABS: BASOPHILS 0 % (0-2); EOSINOPHILS 0.6 % (0-7); HEMATOCRIT 38.4 % (42.0-54.0); HEMOGLOBIN 12.7 g/dL (13.5-17.5); IMMATURE GRANULOCYTES 0.4 % (0-5); LYMPHOCYTES 11.1 % (15-50); MCH 31.3 pg (26.0-34.0); MCHC 33.1 g/dL (31.0-37.0); MCV 94.6 fL (80.0-100.0); MEAN PLATELET VOLUME 10.6 fL (7.4-10.4); MONOCYTES 9.2 % (2-11); NEUTROPHILS 78.7 % (40-80); RBC 4.06 10x6/uL (4.20-6.10); RDW 13.1 % (11.5-14.5); WBC 9.3 10x3/uL (4.8-10.8)
[2017-03-15 23:04] LABS: PLATELET COUNT 224 10x3/uL (130-400)
[2017-03-15 23:10] LABS: CREATININE - SERUM 0.8 mg/dL (0.6-1.3)
== END | disposition home or self-care (01) ==
LOC: D.LABREF 16:10
PROVIDERS: Student in an Organized Health Care Education/Training Program
DX: A41.9 Sepsis, unspecified organism (principal)

== ENCOUNTER → 2017-03-29 12:37 | Outpatient (CLI) | payer MEDICARE, OTHER ==
[2017-02-28 20:15] VITALS: BMI 31.9
== END | disposition home or self-care (01) ==
LOC: D.LABREF 12:37
DX: A49.01 Methicillin susceptible Staphylococcus aureus infection, unspecified site (principal)

== ENCOUNTER → 2017-04-05 12:36 | Outpatient (CLI) | payer MEDICARE, OTHER | END | disposition home or self-care (01) | LOC: D.LABREF 12:36 | DX: A49.01 Methicillin susceptible Staphylococcus aureus infection, unspecified site (principal) ==

== ENCOUNTER 2017-10-27 10:44 | Outpatient (CLI) | payer MEDICARE, OTHER ==
[~2017-10-27] VITALS: Ht 195.6 cm; Wt 127.3 kg
--- NOTE | ~2017-10-27 | HEMODYNAMI ---
PATIENT:MICHELLE FREIRE MEDICAL RECORD: [id number] : 38 LOCATION:D.CAT ADMISSION DATE: 10/27/17 Generatedon:10/27/201714:13 Patient name: MICHELLE FREIRE Patient #: [id number] SSN: : 1940 Date of study: 10/27/2017 Page: Of Hemodynamic Procedure Report Patient Data Patient Demographics Procedure consent was obtained First Name: MICHELLE Gender: Male Last Name: MOUNA : 1940 Middle Initial: VEDA Age: 77 year(s) Patient #: [id number] Race: Unknown Additional ID: [id number] Contact details [address]: [address] [place] [address] State: [place] City: [place] Zip code: [address] Past Medical History Allergies: No known allergies Admission Admission Data Admission Date: 10/27/2017 Admission Time: 10:44 Procedure Procedure Types Cath Procedure Diagnostic Procedure Cardioversion External Procedure Description Procedure Date Procedure Date: 10/27/2017 Procedure Start Time: 14:07 Procedure End Time: 14:12 Procedure Staff Name Function Faisal Michel MD Performing Physician Jose Junior CRNA Additional personnel Rudy Castillo RT Monitor Deisy Bowen RT Monitor Kenrick Myers RN Nurse Agus Benoit RN Nurse Procedure Data Procedure Complications No complications Procedure Medications Medication Administration Route Dosage Oxygen etCO2 Nasal cannula 6 l/min Refer to Anesthesia Notes for Sedation Medications Hemodynamics Rest Heart Rate: 62 (bpm) Snapshots Pre Cath Intra NCS Post Cath Vital Signs Time Heart Resp SPO2 etCO2 NIBP (mmHg) Rhythm Pain Sedation Rate (ipm) (%) (mmHg) Status Level (bpm) 13:55:57 62 15 97 0 156/79(115) NSR 0 (11) 10(A) , No pain 14:00:13 85 15 96 0 142/83(109) NSR 0 (11) 10(A) , No pain 14:04:29 60 16 99 36.7 139/76(106) NSR 0 (11) 10(A) , No pain 14:07:56 85 21 96 19.4 144/97(112) NSR 0 (11) 9(A) , No pain 14:12:06 86 20 96 38.9 141/83(109) NSR 0 (11) 9(A) , No pain Medications Time Medication Route Dose Verified Delivered Reason Notes Effective ness by by 14:07:03 Oxygen etCO2 6 Faisal Goldsmith Nasal l/min Anand Benoit RN cannula 14:07:10 Refer to Faisal Goldsmith Per Anesthesia Anand Benoit RN physician Notes for Sedation Medications Procedure Log Time Note 13:38:45 Deisy Counts RT(R) sent for patient. Start room use. 13:38:46 Time tracking: Regular hours (M-F 7:00 - 5:00) 13:38:49 Plan of Care:Hemodynamics will remain stable., Cardiac rhythm will remain stable., Comfort level will be maintained., Respiratory function will remain adequate., Patient/ family verbilizes understanding of procedure., Procedure tolerated without complication., Recovers from procedure without complications.. 13:45:34 DR MICHEL NOTIFIED OF HEMAGLOBIN: 8.8 13:51:02 Patient arrived from Pre/Post Procedure Room to [facility] 3. Patient remains on bed/stretcher for procedure. 13:51:13 Warm blankets applied, and aquilino hugger turned on for patient comfort. 13:51:13 Correct patient and procedure confirmed by team. 13:51:14 Signed procedure consent form obtained from patient. 13:51:15 ECG and BP/O2 sat monitors applied to patient. 13:54:47 Vital chart was started 13:54:52 Rhythm: atrial fibrillation 13:55:13 H&P Date Dictated: 10/20/2017 Within 30 days and on chart., H&P Addendum completed by physician on day of procedure. (MUST COMPLETE FOR ALL OUTPATIENTS). 13:55:15 Pre-procedure instructions explained to patient. 13:55:17 Pre-op teaching completed and patient verbalized understanding. 13:55:18 Family unavailable. 13:55:28 Patient NPO since Midnight. 13:55:37 Patient allergic to No known allergies 13:55:39 Is the patient allergic to Iodine/contrast media? No. 13:55:41 Is patient on blood thinner?Yes 13:55:44 ACC The patient was administered the following blood thiners within the last 24 hours: Coumadin 13:55:46 Patient diabetic? Yes. 13:55:48 If diabetic: On Metformin? Yes 13:56:13 If on Metformin: Last Dose? 10/26/2017 13:56:17 Previous problem with sedation/anesthesia? No ? 13:56:18 Snore? No 13:56:19 Sleep apnea? No 13:56:21 Deviated septum? No 13:56:21 Opens mouth fully? Yes 13:56:22 Sticks out tongue? Yes 13:56:23 Airway obstruction? Yes COPD 13:56:41 Dentures? Yes IN 13:57:18 Patient pain scale 0/10 ?. 13:57:24 IV patent on arrival in left forearm with 0.9% NaCl at [facility]. 13:57:27 Lab results completed and on chart. 13:57:32 Alarms reviewed by Houston Mancia 13:57:39 Quick combo pads placed on patients chest and back. 13:57:43 Jose Junior CRNA present and monitoring patient for TIVA. 14:02:55 Baseline sample Acquired. 14:05:10 Final Timeout: patient, procedure, and site verified with staff and physician. All members of the team are in agreement. 14:05:14 Physical assessment completed. ASA score P 2 - A patient with mild systemic disease as per Faisal Michel MD. 14:05:17 Sedation plan: TIVA Medication:Propofol 14:06:00 Procedure started. 14:06:34 Defibrillator synced and charged to 200 Joules. 14:06:39 Shock delivered. 14:07:02 Patient cardioverted to sinus rhythm . 14:07:03 Oxygen 6 l/min etCO2 Nasal cannula was administered by Agus Benoit RN; ; 14:07:10 Refer to Anesthesia Notes for Sedation Medications was administered by Agus Benoit RN; Per physician; 14:07:30 Procedure ended.(Physican Out) 14:07:50 Full Disclosure recording started 14:08:33 Insertion/operative site no bleeding no hematoma. 14:08:39 Post-procedure physical assessment completed. ASA score P 2 - A patient with mild systemic disease as per Faisal Michel MD. 14:08:41 Post procedure rhythm: sinus rhythm 14:08:44 Post procedure instruction explained to patient.Patient verbalizes understanding. 14:08:44 Patient needs reinforcement of post procedure teaching. 14:09:03 Procedure Complication : No complications 14:09:06 See physician's report for complete and final results. 14:09:52 Quick Combo opened to sterile field. 14:10:06 Procedure and supply charges have been captured, reviewed, submitted and are correct. 14:12:35 Vital chart was stopped 14:12:42 Report given to Pre/Post Procedure Room. 14:12:44 Patient transfered to Pre/Post Procedure Room with Stretcher. 14:12:49 Procedure ended. 14:12:49 Full Disclosure recording stopped 14:12:52 End room use (Document Last) Device Usage Item Manufacture Quantity Catalog Hospital Part Current Minimal Lot# / Name Number Charge Number [facility] [place] dc# Code Quick [employer] 1 [id number] 5 Combo Signature Audit [place] Stage Time Signature Unsigned Intra-Procedure 10/27/2017 Deisy 2:13:03 PM Counts RT(R) Signatures Monitor : Rudy Castillo RT Signature : Date : Time : Monitor : Deisy Signature : Counts RT Date : Time : [address] [address]
[2017-10-27 07:18] LABS: BASOPHILS 0.2 % (0-2); EOSINOPHILS 2.1 % (0-7); HEMATOCRIT 26.7 % (42.0-54.0); HEMOGLOBIN 8.8 g/dL (13.5-17.5); IMMATURE GRANULOCYTES 0.8 % (0-5); LYMPHOCYTES 20.5 % (15-50); MCH 30.1 pg (26.0-34.0); MCV 91.4 fL (80.0-100.0); MEAN PLATELET VOLUME 11.8 fL (7.4-10.4); MONOCYTES 7.3 % (2-11); NEUTROPHILS 69.1 % (40-80); PLATELET COUNT 100 10x3/uL (130-400); RBC 2.92 10x6/uL (4.20-6.10); WBC 5.2 10x3/uL (4.8-10.8)
[2017-10-27] MEDS ORDERED: HYZAAR 100-25 T1 TAB PO (11:08)
[2017-10-27] MEDS ORDERED: COREG 3.1253.125 MG PO (11:08)
[2017-10-27] MEDS ORDERED: CARDURA2 MG PO (11:08)
[2017-10-27 11:15] VITALS: BP 128/74; Ht 195.6 cm; Wt 127.3 kg
[2017-10-27 11:46] LABS: ANION GAP 8.2 mmol/L (8-16); CARBON DIOXIDE 36.5 mmol/L (21.0-32.0); CREATININE - SERUM 1.1 mg/dL (0.6-1.3); POTASSIUM - SERUM 3.7 mmol/L (3.5-5.1)
[2017-10-27 11:58] LABS: INR 3.74 (0.85-1.17); PROTIME 36.2 SECONDS (11.6-15.0)
== END 2017-10-27 15:35 ==
LOC: D.CATH 10:44
PROVIDERS: Internal Medicine Cardiovascular Disease
DX: I48.91 Unspecified atrial fibrillation (principal); Z01.812 Encounter for preprocedural laboratory examination

== ENCOUNTER → 2019-04-04 13:16 | Outpatient (CLI) | payer MEDICARE, OTHER ==
[2017-10-27 11:15] VITALS: BMI 33.2
[~2019-04-04 13:16] MED LIST changes: +COREG 3.1253.125 MG PO
== END | disposition home or self-care (01) ==
LOC: D.HCCECHO 13:16
PROVIDERS: ATTEND Internal Medicine Cardiovascular Disease
DX: I10 Essential (primary) hypertension (principal)

== ENCOUNTER → 2020-07-31 09:28 | Outpatient (CLI) | payer MEDICARE ==
[2017-10-27 11:15] VITALS: BMI 33.2
--- NOTE | ~2020-07-31 | ST ---
PATIENT:MICHELLE FREIRE MEDICAL RECORD: [id number] SEX: M [facility] ORDER #: ADMISSION DATE: 07/31/20 AGE OF PATIENT: 80 REFERRING PHYSICIAN: INTERPRETING PHYSICIAN: CORA POWER MD DATE OF SERVICE: 07/31/2020 NUCLEAR STRESS TEST GATED: No gated image was performed due to multiple ectopic beats and unable to gate images. SPECT IMAGING: Short axis view: Short axis view shows an extensive mixed defect involving the mid inferior wall down to the inferior apex with some inferoapical reversibility. Horizontal axis: This is confirmed in the horizontal axis with extensive defect from the inferior based on the mid inferior wall with some reversibility along the apex. Vertical axis: Vertical axis shows good uptake along the lateral wall and septum. FINAL IMPRESSION: No gated images. SPECT imaging shows a severe defect along the inferior wall with some reversibility along the inferior apex. The deficit severity is severe. The defect size is large. FINAL RECOMMENDATION: This patient with no known history of coronary artery disease. This scan is certainly concerning for ischemia, would recommend diagnostic angiography if clinically indicated. TRANSINT:[id number] Voice Confirmation ID: [id number] DOCUMENT ID: [id number] CORA POWER MD CC: [id number] DICTATION DATE: 07/31/20 1634 INGOT PASSER: 08/01/20 0239 DEP CLI 07/31/20 [facility] [address] [place] [address]
== END | disposition home or self-care (01) ==
LOC: D.HCCARDIO 07-29 10:00
PROVIDERS: ATTEND Internal Medicine Interventional Cardiology
DX: I25.10 Atherosclerotic heart disease of native coronary artery without angina pectoris (principal)

== ENCOUNTER 2020-08-12 11:27 | Day surgery (SDC) | payer MEDICARE ==
[2020-08-12] MEDS ORDERED: LASIX20 MG PO (11:51)
[2020-08-12] MEDS ORDERED: K-DUR20 MEQ PO (11:51)
[2020-08-12] MEDS ORDERED: SINGULAIR10 MG PO (11:52)
[2020-08-12] MEDS ORDERED: FLUTICASONE PRO16 GM NASAL (11:54)
[2020-08-12] MEDS ORDERED: GLUCOPHAGE850 MG PO (12:00)
[2020-08-12] MEDS ORDERED: MIRALAX17 GM PO (12:01)
[2020-08-12] MEDS ORDERED: BENADRYL25 MG PO (12:02)
[2020-08-12 12:23] LABS: BASOPHILS 0.6 % (0-2); EOSINOPHILS 4.9 % (0-7); HEMATOCRIT 36.2 % (42.0-54.0); HEMOGLOBIN 12.1 g/dL (13.5-17.5); LYMPHOCYTE ABS# 1.48 10x3/uL (1.32-3.57); LYMPHOCYTES 30.4 % (15-50); MCH 32.5 pg (26.0-34.0); MCHC 33.4 g/dL (31.0-37.0); MCV 97.3 fL (80.0-100.0); MONOCYTES 14.4 % (2-11); NEUTROPHIL ABS# 2.42 10x3/uL (1.78-5.38); NEUTROPHILS 49.7 % (40-80); RBC 3.72 10x6/uL (4.20-6.10); WBC 4.9 10x3/uL (4.8-10.8)
[2020-08-12 12:34] LABS: PLATELET COUNT 165 10x3/uL (130-400)
[2020-08-12 12:43] LABS: ANION GAP 9.9 mmol/L (8-16); CALCIUM 9.5 mg/dL (8.5-10.1); CARBON DIOXIDE 35.6 mmol/L (21.0-32.0); CHOL - HDL RATIO 2.4 ratio (2.3-4.9); CREATININE - SERUM 1.1 mg/dL (0.6-1.3); INR 2.42 (0.85-1.17); LDL-HDL RATIO 1.1 ratio (1.5-3.5); POTASSIUM - SERUM 3.5 mmol/L (3.5-5.1); PROTIME 24.4 SECONDS (11.6-15.0)
== END 2020-08-12 13:40 | disposition home or self-care (01) ==
LOC: D.CATH 11:27
PROVIDERS: Internal Medicine Cardiovascular Disease
DX: R94.39 Abnormal result of other cardiovascular function study (principal); Z53.9 Procedure and treatment not carried out, unspecified reason

== ENCOUNTER 2020-08-19 11:02 | Day surgery (SDC) | payer MEDICARE ==
[~2020-08-19] VITALS: Ht 198.1 cm; Wt 117.4 kg
--- NOTE | ~2020-08-19 | HEMODYNAMI ---
PATIENT:MICHELLE FREIRE MEDICAL RECORD: [id number] : 38 LOCATION:DElliCAT ADMISSION DATE: 08/19/20 Generatedon:113:46 Patient name: MICHELLE FREIRE Patient #: [id number] : 1940 Date of study: 08/19/2020 Page: Of Hemodynamic Procedure Report Patient Data Patient Demographics Procedure consent was obtained First Name: MICHELLE Gender: Male Last Name: MOUNA : 1940 Middle Initial: VEDA Age: 80 year(s) Patient #: [id number] Race: SSN: [id number] Additional ID: [id number] Contact details Address: [address] [place] [address] State: [place] City: [place] Zip code: [address] Past Medical History History of disease Date Diagnosis Comments CAD Allergies Allergen Reaction Date Comments Reported Other allergy 08/12/2020 TREE POLLEN Other allergy 08/19/2020 pollen Admission Admission Data Admission Date: 08/19/2020 Admission Time: 11:02 Arrival Date: 08/19/2020 Arrival Time: 13:00 Admit Source: Other Insurance Payor: Medicare HIC #: [id number] Height (in.): 77.95 BSA: 2.51 (m2) Height (cm.): 198 BMI: 29.84 (kg/m2) Weight (lbs.): 257.94 Weight (kg.): 117 Lab Results Lab Result Date: 08/19/2020 Lab Result Time: 0:00 Biochemistry Name Units Result Min Max BUN mg/dl 25 --(----)-* 7 18 Creatinine mg/dl 1 --(--*-)-- 0.6 1.3 CBC Name Units Result Min Max Hemoglobin g/dl 12.5 *-(----)-- 13.5 17.5 Procedure Procedure Types Cath Procedure Diagnostic Procedure [facility] Coronaries only Aortic Root Angiography Sedation Charges Moderate Sedation 10-24 minutes Procedure Description Procedure Date Procedure Date: 08/19/2020 Procedure Start Time: 13:23 Procedure End Time: 13:44 Procedure Staff Name Function Faisal Michel MD Performing Physician Bailey Coppola RT Monitor Nicky Degroot RT Scrub Kenrick Myers RN Nurse Procedure Data Cath Procedure Fluoroscopy Diagnostic fluoroscopy Total fluoroscopy Time: 5 time: 5 min min Diagnostic fluoroscopy Total fluoroscopy dose: 881 dose: 881 mGy mGy Contrast Material Contrast Material Type Amount (ml) Isovue 370 85 Entry Location Entry Primary Successful Side Size Upsize Upsize Entry Closure Succes sful Closure Location (Fr) 1 (Fr) 2 (Fr) Remarks Device Remarks Femoral Right 5 Fr Exoseal artery Estimated blood loss: 5 ml Diagnostic catheters Device Type Used For End Catheter Placement MULTIPACK JL 4.0 5Fr Procedure catheter MULTIPACK 3DRC 5Fr Procedure catheter DIAGNOSTIC AR MOD 5Fr Procedure Catheter ([id number]) MULTIPACK Pigtail 5 Fr Procedure catheter Procedure Complications No complications Procedure Medications Medication Administration Route Dosage Oxygen etCO2 Nasal cannula 2 l/min Lidocaine 2% added to field 20 Heparin Flush Bag added to field 2 bags (1000units/500ml NS) 0.9% NaCl I.V. 100 ml/hr Versed I.V. 1 mg Fentanyl I.V. 50 mcg Versed I.V. 1 mg Fentanyl I.V. 50 mcg Hemodynamics Rest BSA: 2.51 (m2) HGB: 12.5 (g/dl) O2 Consumption: Estimated: 341.36 (ml/min) O2 Co nsumption indexed: Estimated:136 (ml/min/m) Heart Rate: 0 (bpm) Snapshots Pre Cath Intra NCS Post Cath Vital Signs Time Heart Resp SPO2 etCO2 NIBP (mmHg) Rhythm Pain Sedation Rate (ipm) (%) (mmHg) Status Level (bpm) 13:15:26 71 18 96 0 148/79(110) NSR 0 (11) 10(A) , No pain 13:19:48 73 17 98 38.8 124/64(100) NSR 0 (11) 10(A) , No pain 13:24:06 63 12 99 0 122/59(79) NSR 0 (11) 10(A) , No pain 13:28:24 72 14 100 40.3 131/72(109) NSR 0 (11) 9(A) , No pain 13:32:44 77 17 99 37.3 129/70(100) NSR 0 (11) 9(A) , No pain 13:38:30 74 15 99 33.6 123/58(89) NSR 0 (11) 10(A) , No pain 13:42:44 66 14 100 39.5 121/59(90) NSR 0 (11) 10(A) , No pain Medications Time Medication Route Dose Verified Delivered Reason Notes Eff ectiveness by by 13:14:17 Oxygen etCO2 2 Faisal Buffie used for Nasal l/min Anand Myers RN procedure cannula 13:14:24 Lidocaine 2% added 20ml Faisal Faisal for local to vial Anand Michel MD anesthetic field 13:14:30 Heparin Flush added 2 Faisal Faisal used for Bag to bags Anand Michel MD procedure (1000units/500ml field NS) 13:14:39 0.9% NaCl I.V. 100 Faisal Buffie Per ml/hr Anand Myers RN physician 13:21:00 Fentanyl I.V. 50 Faisal Buffie for mcg Anand Myers RN sedation 13:21:54 Versed I.V. 1 mg Faisal Buffie for Anand Myers RN sedation 13:25:22 Versed I.V. 1 mg Faisal Buffie for Anand Myers RN sedation 13:25:26 Fentanyl I.V. 50 Faisal Buffie for mcg Anand Myers RN sedation Procedure Log Time Note 12:53:14 Informed consent obtained and on chart 12:55:19 Arrival Date: 08/19/2020 1:00:00 PM 12:55:40 Admit Source: Other 12:55:43 Insurance Payor : Medicare 12:56:50 Patient Height : 77.95 inches 12:56:54 Patient Weight : 257.94 lbs 12:57:21 Diagnostic Cath Status : Elective 12:58:28 Lab Result : BUN 25 mg/dl 12:58:28 Lab Result : Hemoglobin 12.5 g/dl 12:58:28 Lab Result : Creatinine 1 mg/dl 12:58:35 Procedure Status Elective Heart Cath (OP). 12:58:38 Nicky Degroot RT(R) sent for patient. Start room use. 12:58:39 Time tracking: Regular hours (M-F 7:00 - 5:00) 12:58:44 Plan of Care:Hemodynamics will remain stable., Cardiac rhythm will remain stable., Comfort level will be maintained., Respiratory function will remain adequate., Patient/ family verbilizes understanding of procedure., Procedure tolerated without complication., Recovers from procedure without complications.. 13:11:35 Patient received from Pre/Post Procedure Room to CCL 1 Alert and oriented. Tansferred to table in Supine position. 13:14:06 Vital chart was started 13:14:17 Oxygen 2 l/min etCO2 Nasal cannula was administered by Kenrick Myers RN; used for procedure; Verbal order read back and verified. 13:14:24 Lidocaine 2% 20ml vial added to field was administered by Faisal Michel MD; for local anesthetic; Verbal order read back and verified. 13:14:30 Heparin Flush Bag (1000units/500ml NS) 2 bags added to field was administered by Faisal Michel MD; used for procedure; Verbal order read back and verified. 13:14:39 0.9% NaCl 100 ml/hr I.V. was administered by Kenrick Myers RN; Per physician; Verbal order read back and verified. 13:16:30 ACC Patient presents with Stable Angina CCS Anginal Class 2--Slight limitation of ordinary activity. 13:16:55 Warm blankets applied, and aquilino hugger turned on for patient comfort. 13:16:55 Correct patient and procedure confirmed by team. 13:16:56 ECG and BP/O2 sat monitors applied to patient. 13:16:57 Full Disclosure recording started 13:17:02 Rhythm: paced 13:17:19 H&P Date Dictated: 08/19/2020 Within 30 days and on chart.. 13:17:20 Pre-procedure instructions explained to patient. 13:17:21 Pre-op teaching completed and patient verbalized understanding. 13:17:23 Family unavailable. 13:17:24 Patient NPO since Midnight. 13:17:40 Patient allergic to Other allergypollen 13:17:49 Baseline sample Acquired. 13:17:56 Is the patient allergic to Iodine/contrast media? No. 13:18:00 Was the patient premedicated? Yes 13:18:02 Is patient on blood thinner?Yes 13:18:12 ACC The patient was administered the following blood thiners within the last 24 hours: Coumadin 13:18:15 Patient diabetic? Yes. 13:18:20 If diabetic: On Metformin? Yes 13:18:22 ----Pre-sedation anethsthesia assessment.---- 13:18:25 Snore? Yes 13:18:28 Sleep apnea? Unknown 13:18:28 Previous problem with sedation/anesthesia? No ? 13:18:30 Deviated septum? No 13:18:32 Opens mouth fully? Yes 13:18:34 Sticks out tongue? Yes 13:18:36 Airway obstruction? No ? 13:18:37 Dentures? No ? 13:18:45 Pre procedure: right dorsailis pedis pulse 1+ Palpable, but thready & weak; easily obliterated 13:18:48 Patient pain scale 0/10 ?. 13:18:54 IV patent on arrival in left antecubital with 0.9% NaCl at O. 13:18:56 Lab results completed and on chart. 13:20:30 Stress Test: yes; abnormal INFERIOR 13:20:40 Right groin area was prepped with chlora-prep and draped in sterile fashion 13:20:41 Alarms reviewed by R. N. 13:20:41 Sharps counted by scrub and verified by R.N. 13:20:42 --------ALL STOP TIME OUT------ 13:20:43 Final Timeout: patient, procedure, and site verified with staff and physician. All members of the team are in agreement. 13:20:45 Right groin site verified by team. 13:20:51 Fire Safety Assessment: A--An alcohol-based skin anteseptic being used preoperatively., C--Open oxygen or nitrous oxide is being used., D--An ESU, laser, or fiber-optic light is being used. 13:20:54 Physical assessment completed. ASA score P 2 - A patient with mild systemic disease as per Faisal Michel MD. 13:21:00 Fentanyl 50 mcg I.V. was administered by Kenrick Myers RN; for sedation; Verbal order read back and verified. 13:21:02 2) 60-89 Mildly reduced kidney function, and other findings (as for stage 1) point to kidney disease. 13:21:16 Maximum allowable contrast dose (3.7 X eGFR X 0.75)211 ml. 13:21:20 Sedation plan: IV Moderate Sedation Medication:Versed, Fentanyl 13::23 Use device set Femoral Dx 13:21:24 ACIST Syringe (72581) opened to sterile field. 13:21:25 Bag Decanter (2002S) opened to sterile field. 13:21:26 Medline Cath Pack ([id number]) opened to sterile field. 13:21:27 ACIST Hand Control (43094) opened to sterile field. 13:21:27 ACIST Manifold (25595) opened to sterile field. 13:21:28 DIAGNOSTIC Multipack 5Fr catheter set (UI3144) opened to sterile field. 13:21:29 Tegaderm 4 x 4 (1626W) opened to sterile field. 13:21:29 SHEATH 5FR Hendley (VSW436) opened to sterile field. 13:21:30 EMERALD Guide Wire (273-647) opened to sterile field. 13:21:54 Versed 1 mg I.V. was administered by Kenrick Myers RN; for sedation; Verbal order read back and verified. 13:23:28 Procedure started. 13:23:32 Local anesthetic to right femoral artery with Lidocaine 2% by Faisal Michel MD.INITIAL ACCESS ONLY 13:24:17 A 5 Fr sheath was inserted into the Right Femoral artery 13:25:22 Versed 1 mg I.V. was administered by Kenrick Myers RN; for sedation; Verbal order read back and verified. 13:25:26 Fentanyl 50 mcg I.V. was administered by Kenrick Myers RN; for sedation; Verbal order read back and verified. 13:25:37 A MULTIPACK JL 4.0 5Fr catheter was advanced over the wire and used for Procedure. 13:27:20 LCA angiography performed. 13:27:24 Injector settings: Ml/sec: 3, Volume: 6, 13:28:25 Catheter exchanged over wire. 13:29:00 A MULTIPACK 3DRC 5Fr catheter was advanced over the wire and used for Procedure. 13:30:46 RCA angiography performed. 13:32:08 A DIAGNOSTIC AR MOD 5Fr Catheter ([id number]) was advanced over the wire and used for Procedure. 13:33:00 RCA angiography performed. 13:33:03 Injector settings: Ml/sec: 3, Volume: 6, 13:33:26 Catheter exchanged over wire. 13:33:33 A MULTIPACK Pigtail 5 Fr catheter was advanced over the wire and used for Procedure. 13:37:42 Aortic Root visualized 13:37:45 Injector settings: Ml/sec: 10, Volume: 20, 13:38:45 Catheter removed. 13:38:53 EXOSEAL 5Fr (EX500) opened to sterile field. 13:39:05 Sheath removed intact; hemostasis achieved with Exoseal to the Right Femoral artery. 13:40:17 Fluoroscopy time 05.00 minutes. 13:40:21 Fluoroscopy dose: 881 mGy 13:40:21 Flurop Dose total: 881 13:40:34 Dose Area Product 78441 mGy/cm. 13:40:36 Procedure ended.(Physican Out) 13:41:26 Contrast amount:Isovue 370 85ml. 13:41:34 Maximum allowable dose exceeded? No. 13:41:35 Sharps counted by scrub and verified by R.N. 13:41:41 Post-op/insertion site Right Femoral artery dressed using a 4 x 4 and Tegaderm. 13:41:45 Post right femoral artery:stable, soft, clean and dry 13:41:47 Post Procedure Pulses reassessed and unchanged 13:41:50 Post procedure: right dorsailis pedis pulse 2+ Normal; easily identifiable; not easily obliterated. 13:41:55 Post-procedure physical assessment completed. ASA score P 2 - A patient with mild systemic disease as per Faisal Michel MD. 13:43:06 Post procedure rhythm: unchanged. 13:43:09 Estimated blood loss: 5 ml 13:43:11 Post procedure instruction explained to patient.Patient verbalizes understanding. 13:43:11 Patient needs reinforcement of post procedure teaching. 13:43:29 Procedure type changed to Cath procedure, Diagnostic procedure, C, Coronaries only, Aortic Root Angiography, Sedation Charges, Moderate Sedation 10-24 minutes 13:44:07 Procedure and supply charges have been captured, reviewed, submitted and are correct. 13:44:10 Procedure Complication : No complications 13:44:13 Vital chart was stopped 13:44:15 [facility] Findings: mild to moderate CAD (<70%) 13:44:19 Operative report dictated upon procedure completion. 13:44:19 See physician's report for complete and final results. 13:44:21 Report given to Pre/Post Procedure Room. 13:44:25 Patient transfered to Pre/Post Procedure Room with Stretcher. 13:44:27 Procedure ended. 13:44:27 Full Disclosure recording stopped 13:45:59 End room use (Document Last) 13:46:09 End room use (Document Last) 13:46:33 End room use (Document Last) Device Usage Item Name Manufacture Quantity Catalog Hospital Part Current Minimal L ot# / Number Charge Number Stock Stock Serial# Code ACIST Acist 1 11127 107406 940538 337679 20 Syringe Medical (54585) Systems Inc Bag Microtek 1 162658 88486 333463 5 Decanter Medical Inc. () Medline Medline 1 [id number] 377142 35066 412450 5 Cath Pack ([id number]) ACIST Hand Acist 1 62167 026060 710689 965919 5 Control Medical (64859) Systems Inc ACIST Acist 1 84914 637845 491952 093554 5 Manifold Medical (67399) Systems Inc DIAGNOSTIC Cardinal 1 AF9226 239773 10543 181841 30 Multipack Health 5Fr catheter set (IB8834) Tegaderm 4 3M 1 1626W 500443 335824 153974 5 x 4 (1626W) SHEATH 5FR Terumo 1 GVW826 084569 719738 604808 5 Hendley (QFV276) EMERALD Cardinal 1 502-455 827627 663837 240717 5 Guide Wire Health (502-455) MULTIPACK Cardinal 1 575401 5 JL 4.0 5Fr Health catheter MULTIPACK Cardinal 1 422755 5 3DRC 5Fr Health catheter DIAGNOSTIC Cardinal 1 [id number] 930821 842397 893421 15 AR MOD 5Fr Health Catheter (513296M) MULTIPACK Cardinal 1 389819 5 Pigtail 5 Health Fr catheter EXOSEAL 5Fr Cardinal 1 EX500 499535 211337 409899 10 (EX500) Health Signature Audit [place] Stage Time Signature Unsigned Intra-Procedure 08/19/2020 Bailey Coppola 1:46:09 PM RT(R) Intra-Procedure 08/19/2020 Kenrick Myers RN 1:46:33 PM Intra-Procedure 08/19/2020 Faisal Michel MD 1:46:54 PM [facility] [address] [place] [address]
[~2020-08-19 11:02] MED LIST changes: +BENADRYL25 MG PO; +FLUTICASONE PRO16 GM NASAL; +GLUCOPHAGE850 MG PO; +K-DUR20 MEQ PO; +MIRALAX17 GM PO; +SINGULAIR10 MG PO
[2020-08-19 11:42] VITALS: BP 154/79; Ht 198.1 cm; Wt 117.4 kg
[2020-08-19 11:53] LABS: BASOPHILS 0.5 % (0-2); EOSINOPHILS 3.2 % (0-7); HEMATOCRIT 37.8 % (42.0-54.0); HEMOGLOBIN 12.5 g/dL (13.5-17.5); IMMATURE GRANULOCYTES 0.2 % (0-5); LYMPHOCYTE ABS# 1.44 10x3/uL (1.32-3.57); LYMPHOCYTES 25.9 % (15-50); MCHC 33.1 g/dL (31.0-37.0); MCV 96.7 fL (80.0-100.0); MONOCYTES 18.2 % (2-11); NEUTROPHIL ABS# 2.88 10x3/uL (1.78-5.38); PLATELET COUNT 185 10x3/uL (130-400); RBC 3.91 10x6/uL (4.20-6.10); RDW 12.9 % (11.5-14.5); WBC 5.6 10x3/uL (4.8-10.8)
[2020-08-19 11:55] LABS: INR 1.23 (0.85-1.17); PROTIME 14.3 SECONDS (11.6-15.0)
[2020-08-19 12:01] LABS: ALT (SGPT) 19 U/L (10-68); CALC OSMOLALITY 277 mosm/kg (275-300); CARBON DIOXIDE 32.7 mmol/L (21.0-32.0); CHLORIDE - SERUM 96 mmol/L (98-107); CHOL - HDL RATIO 2.4 ratio (2.3-4.9); CHOLESTEROL, TOTAL 208 mg/dL (0-200); GLUCOSE 142 mg/dL (74-106); HDL CHOLESTEROL 86 mg/dL (32-96); LDL CHOLESTEROL 94 mg/dL (0-100); LDL-HDL RATIO 1.1 ratio (1.5-3.5); POTASSIUM - SERUM 3.4 mmol/L (3.5-5.1); SODIUM 136 mmol/L (136-145); TRIGLYCERIDE 142 mg/dL (30-200); UREA NITROGEN 25 mg/dL (7-18); eGFR NON AFRICAN AMERICAN 76 mL/min (90-120)
--- NOTE | 2020-08-19 13:55 | NUR ---
PT REC'D TO CATH RECOVERY ROOM 5 VIA STRETCHER. MONITORS ESTAB. VSS. 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 ALARMS ON AND C/L IN REACH.
--- NOTE | 2020-08-19 14:10 | NUR ---
R GROIN EXOSEAL SITE SOFT, NO S/S BLEEDING OR HEMATOMA. R LEG/FOOT WARM WITH PALP PULSES AND BRISK CAP REFILL. PT AWAKENS EASILY, DENIES PAIN OR NEEDS. ALARMS ON AND C/L IN REACH.
--- NOTE | 2020-08-19 14:40 | NUR ---
R GROIN EXOSEAL SITE SOFT, NO S/S BLEEDING OR HEMATOMA. R LEG/FOOT WARM WITH PALP PULSES AND BRISK CAP REFILL. VSS. PT DENIES PAIN OR NEEDS. ALARMS ON AND C/L IN REACH.
--- NOTE | 2020-08-19 15:00 | NUR ---
R GROIN SITE SOFT, NO S/S BLEEDING OR HEMATOMA, PULSES PALP. HOB ELEVATED. SANDWICH TRAY PROVIDED AND FRESH WATER. VSS. CM - PACED, NO ECTOPY NOTED. C/L IN REACH.
--- NOTE | 2020-08-19 15:14 | NUR ---
I SPOKE WITH PTS , PLAN FOR D/C AT 1600. R GROIN SITE SOFT, C/D/I. PULSES PALP. VSS. PT TOLERATING DIET, DENIES NEEDS. C/L IN REACH.
--- NOTE | 2020-08-19 15:41 | NUR ---
PT ATE ALL OF SANDWICH. VSS. R GROIN SITE SOFT, C/D/I, PULSES PALP. ALL DISCHARGE INSTRUCTIONS REVIEWED INCLUDING RESTRICTIONS, MEDS AND F/U APPT. PT VERBALIZES UNDERSTANDING. NO OTHER QUESTIONS AT THIS TIME.
--- NOTE | 2020-08-19 15:55 | NUR ---
PIV D/C'D INTACT, DSG APPLIED, PT ALLOWED UP TO GET DRESSED AND GO TO BR INDEPENDENTLY.
--- NOTE | 2020-08-19 16:17 | NUR ---
PT D/C'D TO PRIVATE VEHICLE WITH ALL PAPERWORK AND BELONGINGS
== END 2020-08-19 16:17 | disposition home or self-care (01) ==
LOC: D.CATH 11:02
PROVIDERS: ATTEND Internal Medicine Cardiovascular Disease
DX: I25.119 Atherosclerotic heart disease of native coronary artery with unspecified angina pectoris (principal); R94.39 Abnormal result of other cardiovascular function study; R06.09 Other forms of dyspnea; I10 Essential (primary) hypertension; E11.9 Type 2 diabetes mellitus without complications; Z95.0 Presence of cardiac pacemaker; I48.91 Unspecified atrial fibrillation; Z95.5 Presence of coronary angioplasty implant and graft; I34.0 Nonrheumatic mitral (valve) insufficiency